=== PATIENT | female | born 1935 | race Caucasian/White ===

== ENCOUNTER 2020-12-12 19:13 | Inpatient (IN) | payer MEDICARE, SELFPAY ==
[2020-12-12 19:14] VITALS: BP 153/88; PULSE 70; RESP 15; TEMP 36.7; O2SAT 98; BMI 23.9
--- NOTE | 2020-12-12 19:33 | CT_ITS ---
STUDY: CT ABDOMEN AND PELVIS WITH CONTRAST REASON FOR EXAM: Female, 85 years old. Sharp mid upper abdominal pain radiating to bilateral lower quadrant for 10 days, prior colectomy RADIATION DOSAGE (If Supplied By Facility): CTDIvol = ( 6.66 ) mGy, DLP = ( 667.42 ) mGycm TECHNIQUE: CT images were obtained from the dome of the diaphragm to the symphysis pubis without oral contrast. Isovue 370 100ml was administered. Sagittal and coronal images were reconstructed. Individualized dose optimization techniques were used for this CT. COMPARISON: None. FINDINGS: There is severe elevation of the left hemidiaphragm with diaphragmatic hernia containing most of the stomach which is not entirely covered by the abdominal images. Additional images are discontinuous. Assessment is difficult. There is unusual configuration of the stomach, possibly partial volvulus within the hernia. However, systemic wall and surrounding fat are normal. There is bilateral basal atelectasis. Coronary arteries are severely diseased. Normal liver. Normal gallbladder and extrahepatic biliary system. Normal spleen. Normal pancreas. Normal bilateral adrenal glands. Normal right kidney. Normal left kidney. There is diffuse colonic diverticulosis. There is acute diverticulitis of the small bowel. There is a single large diverticulum in the distal jejunum with surrounding inflammation. There is no free perforation or extraluminal gas. There is partial right colectomy and appendectomy. Normal abdominal aorta. Normal inferior vena cava. Normal retroperitoneum. Normal urinary bladder. There is small amount of free fluid in the pelvis. Normal abdominal wall. Normal osseous structures. CT/Abdomen/Pelvis WITH Contrast IMPRESSION: 1. Small bowel diverticulitis, unusual appearance. Surgical consultation advised. 2. Extensive colonic diverticulosis. 3. 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 Surgical attention advised. 4. Severe coronary artery disease. Electronically Signed: Zonia Viera MD at 22:07 EDT Tel , Service support ,
--- NOTE | 2020-12-12 19:33 | EDS_ITS ---
HPI HPI - GI History of Present Illness Chief Complaint: Abd Pain Detail of Chief Complaint: Abdominal pain Informant: patient Abdominal Pain/Flank Pain Current Severity: 11/15 Narrative Narrative: Patient presents with abdominal pain that started around 3 PM. Patient states that she had not had a bowel movement in a couple of days and went into the restroom. Patient had a small bowel movement and when she stood up off the toilet she started experiencing severe abdominal pain. She denies nausea or vomiting. She denies blood in her stool or black tarry stool. Patient states that she was seen in an emergency department 1 week ago and diagnosed with a UTI. Patient denies dysuria currently. Patient does have history of prior appendectomy as well as partial colectomy related to diverticulitis. PFSH PFSH Medical History (Updated 12/12/20 @ 22:[address] Bianca Paz, ) Diverticulitis FH: total knee replacement Prolapsed bladder UTI (urinary tract infection) Home Medications aspirin 325 mg PO DAILY@0800 tablet 10/31/15 [Rx Last Taken Unknown] atorvastatin 20 mg PO QHS #30 tablet 10/31/15 [Rx Last Taken Unknown] amlodipine 10 mg PO DAILY 12/12/20 [History Last Taken Unknown] metoprolol succinate 50 mg PO BID 12/12/20 [History Last Taken Unknown] Allergy/AdvReac Type Severity Reaction Status Date / Time No Known Allergies Allergy Verified 12/12/20 19:19 Surgical History (Updated 12/12/20 @ 19:21 by Daxa Young) Hx of colectomy Social History Smoking Status: Never smoker ROS ROS ED Constitutional Constitutional ED: Reports systems reviewed and no addt'l complaints, except as documented; Denies body ache(s), change in weight or chills Eyes Eyes: Denies acute decrease in peripheral vision, change in vision, double vision or loss of vision ENT ENT ED: Reports none; Denies ear pain, lip swelling, loss taste/smell, neck pain, otalgia or sore throat Cardiovascular Cardiovascular: Reports none; Denies abdominal pain, chest pain with activity, leg edema, lightheadedness, palpitations, rapid heart rate or syncope Respiratory/Chest Respiratory/Chest: Reports none; Denies change in mental status, dry cough, dyspnea, hemoptysis, shortness of breath at rest or shortness of breath with exertion Gastrointestinal Gastrointestinal: Reports none and abdominal pain; Denies change in stool character, diarrhea, hematemesis, hematochezia, melena, rectal bleeding or vomiting Genitourinary Genitourinary ED: Reports none; Denies abdominal discomfort, anuria, dysuria, genital pain or polyuria Musculoskeletal Musculoskeletal: Reports none; Denies arthralgias, back pain, difficulty walking, extremity pain, muscle weakness or myalgias Integumentary Reports none; Denies abscess or rash Neurologic Neurologic: Reports none; Denies abnormal gait, confusion, focal weakness, frequent falls, headache(s), loss of vision, numbness, paresthesias, radicular pain, vertigo or weakness Psychiatric Psychiatric: Reports systems reviewed and no addt'l complaints, except as documented and none; Denies behavioral changes, confusion, difficulty concentrating, hallucinations, suicidal ideation, tactile hallucinations or visual hallucinations Endocrine Endocrinology: Denies none, cold intolerance, excessive sweating, fatigue or heat intolerance Hematologic/Lymphatic Hematologic/Lymphatic: Reports none; Denies anemia, easy bleeding or easy bruising Allergic/Immunologic Allergic/Immunologic ED: Denies as per HPI, none, lip swelling, mouth swelling, throat swelling, tongue swelling or hives EXAM Physical Exam Const Vital Signs: 12/12/20 19:14 12/12/20 22:22 Temperature 98.0 F Temperature Source Oral Pulse Rate 70 71 Respiratory Rate 15 15 Blood Pressure 153/88 H 141/74 H Blood Pressure Mean 109 96 Pulse Ox 98 94 Oxygen Delivery Method Room Air Room Air Positive well nourished and well developed General Appearance ED: well developed and NAD HEENT Reports TM's clear and moist mucous membranes normocephalic and atraumatic; Negative for trauma or tenderness Tympanic Membrane ED: Yes TM's clear Eyes PERRL and EOMs intact bilaterally General Eye ED: Negative for pale conjunctiva or scleral icterus Neck no lymphadenopathy, supple and no JVD General: Negative for tenderness Chest Wall inspection of chest normal and palpation of chest normal Chest: Negative for tenderness Resp normal respiratory effort and clear to auscultation bilaterally Effort and Inspection: Negative for respiratory distress or pain with movement Auscultation: Negative for rhonchi, wheezes or diminished lung sounds Cardio regular rate, regular rhythm, S1 normal heart sound, S2 normal heart sound and no murmurs Peripheral Pulses: pulses 2+ throughout GI normal to inspection, nondistended, normoactive bowel sounds, soft to palpation, non-distended and no masses GI Narrative: Patient has diffuse tenderness on exam with guarding. There is no rebound, rigidity, or peritoneal signs. Palpation: tender Back/Spine no CVA tenderness and no thoracic nor lumbar tenderness Extremity normal to inspection General Extremety ED: Negative for edema General Extremity: Negative for edema Neuro oriented x3, CN's II-XII intact bilaterally, no sensory deficits noted and gait normal Sensorium / Orientation: awake, alert, oriented to person, oriented to place and oriented to time Motor Exam: strength 5/5 throughout and strength abnormal Psych mental status grossly normal Skin no rashes or lesions noted and no wounds MDM MDM MDM Narrative Medical decision making narrative: IV line established on arrival. Patient was medicated morphine and Zofran. Lab work-up was unremarkable. CT scan with IV and p.o. contrast of the abdomen pelvis was obtained which was read by radiology as small bowel diverticulitis unusual appearance and surgical consultation advised. Patient also had a large left diaphragmatic hernia with atypical configuration of the stomach in the left chest possibly partial volvulus. Case discussed with general surgeon on-call Dr. Rosalind Duval who present to the ER to evaluate patient. I did ask that we obtain a copy of the CT scan from [facility] where patient had a CT last week for comparison. Care of patient turned over to evening physician awaiting evaluation by general surgeon. Lab Data Attestation: I reviewed the patient's lab results. Labs: Laboratory Results - last 24 hr 12/12/20 12/12/20 12/12/20 19:29 19:29 19:29 WBC 9.3 RBC 5.59 H Hgb 16.0 H Hct 50.2 H MCV 89.8 MCH 28.6 MCHC 31.9 L RDW Std Deviation 44.4 H RDW Coeff of Sarah 13.4 Plt Count 216 MPV 10.1 Immature Gran % (Auto) 0.200 Neut % (Auto) 80.1 H Lymph % (Auto) 15.0 L [place] % (Auto) 4.0 Eos % (Auto) 0.4 Baso % (Auto) 0.3 Absolute Neuts (auto) 7.5 Absolute Lymphs (auto) 1.40 Nucleated RBC % 0 Sodium 140 Potassium 4.0 Chloride 108 H Carbon Dioxide 28.0 Anion Gap 4 L BUN 15 Creatinine 0.93 Estim Creat Clear Calc 34.34 Est GFR (MDRD) Af Amer 73 Est GFR (MDRD) Non-Af 60 BUN/Creatinine Ratio 16.1 Glucose 127 H Lactic Acid 1.0 Calcium 9.1 Total Bilirubin 0.50 AST 19 ALT 25 Alkaline Phosphatase 147 H Total Protein 7.7 Albumin 3.3 Globulin 4.4 H Albumin/Globulin Ratio 0.8 L Urine Color Urine Clarity Urine pH Ur Specific [place] Urine Protein Urine Glucose (UA) Urine Ketones Urine Occult Blood Urine Nitrite Urine Bilirubin Urine Urobilinogen Ur Leukocyte Esterase Urine RBC Urine WBC Ur Squamous Epith Cells Urine Bacteria Urine Mucus 12/12/20 21:00 WBC RBC Hgb Hct MCV MCH MCHC RDW Std Deviation RDW Coeff of Sarah Plt Count MPV Immature Gran % (Auto) Neut % (Auto) Lymph % (Auto) [place] % (Auto) Eos % (Auto) Baso % (Auto) Absolute Neuts (auto) Absolute Lymphs (auto) Nucleated RBC % Sodium Potassium Chloride Carbon Dioxide Anion Gap BUN Creatinine Estim Creat Clear Calc Est GFR (MDRD) Af Amer Est GFR (MDRD) Non-Af BUN/Creatinine Ratio Glucose Lactic Acid Calcium Total Bilirubin AST ALT Alkaline Phosphatase Total Protein Albumin Globulin Albumin/Globulin Ratio Urine Color Yellow Urine Clarity Clear Urine pH 6.0 Ur Specific [place] 1.020 Urine Protein Negative Urine Glucose (UA) Normal Urine Ketones 5 H Urine Occult Blood Negative Urine Nitrite Negative Urine Bilirubin Negative Urine Urobilinogen 1 H Ur Leukocyte Esterase 25 H Urine RBC 0 SEEN Urine WBC 5-10 SEEN Ur Squamous Epith Cells 0-5 SEEN Urine Bacteria 2+ Urine Mucus 1+ Radiography Diagnostic Testing: Clinical Impression(s) from Imaging Studies Abdomen/Pelvis CT 12/12/20 19:33 IMPRESSION: 1. Small bowel diverticulitis, unusual appearance. Surgical consultation advised. 2. Extensive colonic diverticulosis. 3. 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 Surgical attention advised. 4. Severe coronary artery disease. Electronically Signed: Zonia Viera MD at 22:07 EDT Tel , Service support , Discharge Plan Triage Chief Complaint: Abd Pain ED Provider: Ungur,Remus Dx/Rx/DC Orders Clinical Impression: Abdominal pain, Diverticulitis Prescriptions: No Action atorvastatin 20 MG tablet 20 mg PO QHS Qty: 30 RF: 0 aspirin 325 MG tablet 325 mg PO DAILY@0800 RF: 0 metoprolol succinate 50 MG tablet extended release 24 hr 50 mg PO BID RF: 0 amlodipine 10 mg tablet 10 mg PO DAILY RF: 0 Primary Care Provider: Ness Tello Referrals: Ness Tello PA [Primary Care Provider] -
[2020-12-12 19:42] LABS: Absolute Neutrophil Count 7.5 X10^3/uL (2.0-7.7); Basophil# 0.03 X10^3/uL; Basophil% 0.3 % (0-1); Eosinophil# 0.04 X10^3/uL; Eosinophils% 0.4 % (0-5); Hematocrit 50.2 % (37-47); Mean Corp Hgb Conc 31.9 g/dL (32-36); Mean Corpuscular Hgb 28.6 pg (27.0-32.0); Mean Corpuscular Volume 89.8 fL (81-99); Mean Platelet Vol. 10.1 fl (6.2-12.0); Monocyte# 0.37 X10^3/uL; NRBC Flagged by Analyzer 0 % (0-5); Neutrophil # 7.46 X10^3/uL (2.7-7.7); Neutrophil % 80.1 % (47-70); Platelet Count 216 K/mm3 (150-450); RBC Distribution Width CV 13.4 % (11.6-14.6); RBC Distribution Width SD 44.4 fl (35.1-43.9); Red Blood Count 5.59 M/mm3 (4.2-5.4); White Blood Count 9.3 K/mm3 (4.4-11.0)
[2020-12-12] MEDS: Ondansetron 4 MG/2 ML Vial IV ×2 (19:47→23:09)
[2020-12-12] MEDS: Morphine 4 MG/ML Syringe IV ×2 (19:48→23:11)
[2020-12-12] MEDS: 0.9% Normal Saline 1,000 ML 125 ML IV (19:51)
[2020-12-12 19:57] LABS: ALB/GLOB Ratio 0.8 RATIO (0.9-2.4); AST(SGOT) 19 U/L (15-37); Alanine Aminotransfer ALT/SGPT 25 U/L (13-56); Albumin, Serum 3.3 g/dL (3.2-5.0); Alkaline Phosphatase 147 U/L (45-117); Anion Gap 4 (5-15); BUN 15 mg/dL (7-18); BUN/Creat Ratio 16.1 RATIO (10-20); Calcium,Total 9.1 mg/dL (8.5-10.1); Chloride 108 mmol/L (98-107); Creatinine, Serum 0.93 mg/dL (0.55-1.02); EST Glomerular Filtration Rate 60 mL/min (>60); Est Glom Filt Rate - Afr Amer 73 mL/min (>60); Estimated Creatinine Clearance 34.34 ml/min; Globulin 4.4 g/dL (2.2-4.2); Glucose 127 mg/dL (74-106); Protein, Total 7.7 g/dL (6.4-8.2); Sodium Level 140 mmol/L (136-145)
[2020-12-12 21:08] LABS: Red Blood Cells-Urine 0 SEEN /hpf (0-5)
[2020-12-12 21:15] LABS: Color, Urine Yellow (Yellow); Glucose, Dipstick Normal (Normal); Ketone-Dipstick 5 mg/dl (Negative); Leukocyte Esterase-Dipstick 25 /ul (Negative); Nitrite-Dipstick Negative (Negative); Occult Blood-Urine Negative /ul (Negative); Protein-Dipstick Negative (Negative); Urine Bilirubin Dipstick Negative (Negative); Urine Clarity Clear (Clear); Urine Urobilinogen 1 mg/dl (Normal)
[2020-12-12 21:38] LABS: Bacteria 2+ /hpf (None Seen); Mucous, Urine 1+ /hpf (<or=2+); Squamous Epithelial Cells - UA 0-5 SEEN /hpf (5-10); White Blood Cells 5-10 SEEN /hpf (0-5)
[2020-12-12 22:22] VITALS: BP 141/74; PULSE 71; RESP 15; O2SAT 94
[2020-12-12] MEDS: Ciprofloxacin 400 MG/200 ML BAG 200 MG IV (23:25)
--- NOTE | 2020-12-12 23:29 | PCM.HP.STD ---
HPI - General General Date of Admission: 12/13/20 HPI Narrative I was consulted by the ED physician for this patient and I came to the ED to evaluate her. CHRIS JUGN, is a 85 F who presents with sudden onset of abdominal pain - generalized, beginning at 3:00 this afternoon. She denies such abdominal pain in the past. She has had nausea and anorexia, she denies emesis, though recently dry heaves. She had a bowel movement today. She has severe abdominal pain, despite receiving IV morphine here in the ED. She states that she presented with 10/10 pain but with IV morphine it became 8/10. She presents with stable vital signs and a normal WBC (though with left shift of differential) and normal lactic acid, but CT scan reveals that that she has a large left diaphragmatic hernia with almost her entire stomach in the thoracic area. There is question of volvulus as read by the radiologist. The patient seemingly has pain out of proportion to diverticulitis pain by examination. [facility] Medical History (Updated 12/13/20 @ 08:[address] Celestino Vega MD) Diverticulitis FH: total knee replacement Prolapsed bladder UTI (urinary tract infection) Home Medications amlodipine 10 mg PO DAILY 12/12/20 [History Last Taken Unknown] metoprolol succinate 50 mg PO BID 12/12/20 [History Last Taken Unknown] aspirin [Baby Aspirin] 81 mg PO DAILY 12/13/20 [History Last Taken Unknown] Allergy/AdvReac Type Severity Reaction Status Date / Time No Known Allergies Allergy Verified 12/12/20 19:19 Surgical History (Updated 12/12/20 @ 23:[address] Rosalind Duval MD) H/O total knee replacement Hx of colectomy Social History Smoking Status: Never smoker ROS Constitutional Constitutional: Reports anorexia; Denies fever(s) Cardiovascular Cardiovascular: Denies chest pain Respiratory/Chest Respiratory/Chest: Denies cough or dyspnea Gastrointestinal Gastrointestinal: Reports systems reviewed and no addt'l complaints, except as documented Genitourinary Genitourinary: Reports other Details: recent treatment for UTI Musculoskeletal Musculoskeletal: Reports back pain Integumentary Integumentary: Reports none; Denies wounds Neurologic Neurologic: Denies confusion or convulsions Vital Signs Vital Signs Vital Signs: 12/12/20 19:14 12/12/20 22:22 Temperature 98.0 F Temperature Source Oral Pulse Rate 70 71 Respiratory Rate 15 15 Blood Pressure 153/88 H 141/74 H Blood Pressure Mean 109 96 Pulse Ox 98 94 Oxygen Delivery Method Room Air Room Air Weight Weight: 59.3 kg Body Mass Index (BMI) 23.9 Physical Exam Narrative complains of severe abdominal pain, can't lie still Const oriented x3 Resp normal respiratory effort Cardio regular rate GI GI Narrative: guarding throughout, no bowel sounds, patient pushes my hand away when I am examining her Extremity no clubbing, cyanosis or edema Psych Psych Narrative: very anxious Results Lab / Micro Data Result Diagrams: 12/13/20 09:55 12/13/20 09:55 Labs: Laboratory Results - last 24 hr 12/12/20 19:29: WBC 9.3, RBC 5.59 H, Hgb 16.0 H, Hct 50.2 H, MCV 89.8, MCH 28.6, MCHC 31.9 L, RDW Std Deviation 44.4 H, RDW Coeff of Sarah 13.4, Plt Count 216, MPV 10.1, Immature Gran % (Auto) 0.200, Neut % (Auto) 80.1 H, Lymph % (Auto) 15.0 L, [place] % (Auto) 4.0, Eos % (Auto) 0.4, Baso % (Auto) 0.3, Absolute Neuts (auto) 7.5, Absolute Lymphs (auto) 1.40, Nucleated RBC % 0 12/12/20 19:29: Sodium 140, Potassium 4.0, Chloride 108 H, Carbon Dioxide 28.0, Anion Gap 4 L, BUN 15, Creatinine 0.93, Estim Creat Clear Calc 34.34, Est GFR (MDRD) Af Amer 73, Est GFR (MDRD) Non-Af 60, BUN/Creatinine Ratio 16.1, Glucose 127 H, Calcium 9.1, Total Bilirubin 0.50, AST 19, ALT 25, Alkaline Phosphatase 147 H, Total Protein 7.7, Albumin 3.3, Globulin 4.4 H, Albumin/Globulin Ratio 0.8 L 12/12/20 19:29: Lactic Acid 1.0 12/12/20 21:00: Urine Color Yellow, Urine Clarity Clear, Urine pH 6.0, Ur Specific [place] 1.020, Urine Protein Negative, Urine Glucose (UA) Normal, Urine Ketones 5 H, Urine Occult Blood Negative, Urine Nitrite Negative, Urine Bilirubin Negative, Urine Urobilinogen 1 H, Ur Leukocyte Esterase 25 H, Urine RBC 0 SEEN, Urine WBC 5-10 SEEN, Ur Squamous Epith Cells 0-5 SEEN, Urine Bacteria 2+, Urine Mucus 1+ Radiology Impression Abdomen/Pelvis CT 12/12/20 19:33 IMPRESSION: 1. Small bowel diverticulitis, unusual appearance. Surgical consultation advised. 2. Extensive colonic diverticulosis. 3. 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 Surgical attention advised. 4. Severe coronary artery disease. Electronically Signed: Zonia Viera MD at 22:07 EDT Tel , Service support , Assessment & Plan Assessment/Plan (1) Abdominal pain: QUALIFIERS: Abdominal location: generalized Qualified Code(s): R10.84 - Generalized abdominal pain PLAN: Patient with severe abdominal pain, this may be a complication of her large diaphragmatic hernia with intrathoracic stomach (albeit this is a chronic condition), I am not certain that the small intestinal diverticulitis would be causing this patient's severe pain on presentation/physical examination. I am not able to perform repair of diaphragmatic hernia with intrathoracic stomach in this MTF, I would therefore have patient transferred to a larger MTF. I have explained this to patient and her daughter who is present with her. I have contacted [facility] and Dr. Min is the accepting physician
[2020-12-12 23:30] VITALS: BP 137/75; PULSE 72; RESP 15; O2SAT 91
[2020-12-12 23:57] VITALS: BP 129/62; PULSE 69; RESP 15; O2SAT 95
[2020-12-13] VITALS (14 sets, daily range): BP systolic 98–145; BP diastolic 56–70; PULSE 62–79; RESP 15–18; TEMP 36.4–37.1; O2SAT 91–97; BMI 23.6
[2020-12-13] MEDS: metroNIDAZOLE 500 MG/100 ML BAG 100 MG IV ×3 (00:33→21:39)
[2020-12-13] MEDS: Morphine 4 MG/ML Syringe IV ×2 (00:34→05:11)
[2020-12-13] MEDS: Ondansetron 4 MG/2 ML Vial IV ×2 (00:36→12:34)
--- NOTE | 2020-12-13 00:36 | ED.RN ---
PATIENT ACCEPTED AT [facility] THEY DONT HAVE A TIME FOR WHEN THE PATIENT WILL GET A BED
[2020-12-13] MEDS: 0.9% Normal Saline 1,000 ML 125 ML IV (03:44)
[2020-12-13] MEDS: Metoclopramide 10 MG/2 ML Vial 5 MG IV (05:54)
--- NOTE | 2020-12-13 07:48 | HP.PCM.HOS_ITS ---
HPI - General HPI Narrative CHRIS JUNG, is a 85 F with multiple comorbidities including coronary artery disease status post stents, lacunar infarcts in the past in 2016, hypertension was brought to ER by EMS for abdominal pain. Patient complain of severe abdominal pain for last 2 days along with burping, nausea but no vomiting. She was given IV fluid, Zofran by EMS. She is passing incomplete flatus but no stool. Abdominal pain is 10/10 diffuse from the lower half of chest to pelvis but predominantly left upper quadrant. Patient was seen in [facility] on 11/30 for right-sided abdominal pain and at that time CT abdomen showed intrathoracic stomach without obstruction, no bowel obstruction or dilatation or diverticulosis throughout the colon most significant in sigmoid colon. No focal acute inflammation. Appendix absence. Evidence of prior right hemicolectomy and anastomosis. In ER CT abdomen was done which showed large left diaphragmatic hernia with possible partial volvulus of the stomach. Acute small bowel diverticulitis with single large diverticulum in distal jejunum with surrounding inflammation. No free perforation or extraluminal gas. Diffuse colonic diverticulosis. and patient was evaluated by surgeon and recommended transfer to [facility] and patient is accepted there. There is still no bed average in [facility] therefore she is admitted in the interim. Patient does not have leukocytosis but neutrophil predominant differential. 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 [facility] Medical History (Updated 12/13/20 @ 08:[address] Celestino Vega MD) Diverticulitis FH: total knee replacement Prolapsed bladder UTI (urinary tract infection) Home Medications aspirin 325 mg PO DAILY@0800 tablet 10/31/15 [Rx Last Taken Unknown] atorvastatin 20 mg PO QHS #30 tablet 10/31/15 [Rx Last Taken Unknown] amlodipine 10 mg PO DAILY 12/12/20 [History Last Taken Unknown] metoprolol succinate 50 mg PO BID 12/12/20 [History Last Taken Unknown] Allergy/AdvReac Type Severity Reaction Status Date / Time No Known Allergies Allergy Verified 12/12/20 19:19 Surgical History (Updated 12/12/20 @ 23:[address] Rosalind Duval MD) H/O total knee replacement Hx of colectomy Social History Smoking Status: Never smoker ROS ROS Narrative Constitutional: Reports fatigue and weakness HEENT: Reports systems reviewed and no addt'l complaints, except as documented Respiratory/Chest: As described in HPI. mild shortness of breath from pain Gastrointestinal: As described in HPI. Genitourinary: History of genital prolapse.Denies burning urination or new urinary tract symptoms Musculoskeletal: Reports joint pain and limited range of motion Neurologic: Denies seizure-like activity. Mild dementia skin: No ulcer. No rash Endocrinology: Reports systems reviewed and no addt'l complaints, except as documented Hematologic/Lymphatic: Reports systems reviewed and no addt'l complaints, except as documented Rest 12 ROS are negative except as mentioned in HPI Review of Systems ROS Unobtainable: due to mental condition Vital Signs Vital Signs Vital Signs: 12/12/20 19:14 12/12/20 22:22 12/12/20 23:30 Temperature 98.0 F Temperature Source Oral Pulse Rate 70 71 72 Respiratory Rate 15 15 15 Blood Pressure 153/88 H 141/74 H 137/75 H Blood Pressure Mean 109 96 95 Pulse Ox 98 94 91 Oxygen Delivery Method Room Air Room Air Room Air Oxygen Flow Rate (L/min) 12/12/20 23:57 12/13/20 00:52 12/13/20 02:50 Temperature Temperature Source Pulse Rate 69 62 63 Respiratory Rate 15 15 15 Blood Pressure 129/62 H 114/67 100/56 L Blood Pressure Mean 84 82 70 Pulse Ox 95 92 94 Oxygen Delivery Method Nasal Cannula Nasal Cannula Nasal Cannula Oxygen Flow Rate (L/min) 2 2 2 12/13/20 03:52 12/13/20 05:35 12/13/20 05:56 Temperature Temperature Source Pulse Rate 63 65 63 Respiratory Rate 15 15 15 Blood Pressure 116/66 98/61 109/61 Blood Pressure Mean 82 73 77 Pulse Ox 91 94 97 Oxygen Delivery Method Nasal Cannula Nasal Cannula Nasal Cannula Oxygen Flow Rate (L/min) 2 2 2 Weight Weight: 130 lb 11.746 oz Body Mass Index (BMI) 23.9 Physical Exam Narrative General: Alert, Oriented x3, Cooperative HEENT: Atraumatic, PERRLA, EOMI, Normocephalic Oral: No Gingival or Mucosal Lesions/ Ulcerations Neck: Supple, No JVD, Negative Carotid Bruits Lungs: Air entry diminished in bilateral lung bases. No crepitation/rhonchi Cardiovascular: S1-S2 regular, no murmur gallop rub. Abdomen: Diffuse tenderness from the lower half of chest to pelvis. Bowel Sounds hyperactive. Voluntary guarding present. No rigidity. No distention. : Chronic genitourinary prolapse. No renal angle tenderness. No suprapubic tenderness. Extremities: No edema, Capillary Refill Less than 3 Seconds Skin: No rashes, No breakdown Musculoskeletal: No Tenderness to Palpation of Joints or Extremities Neurological: Cranial nerves II-XII grossly intact, DTR 2+/4 and Symmetrical, Neuro grossly intact Psych/Mental Status: Flat affect. Results Lab / Micro Data Result Diagrams: 12/12/20 19:29 12/12/20 19:29 Labs: Laboratory Results - last 24 hr 12/12/20 19:29: WBC 9.3, RBC 5.59 H, Hgb 16.0 H, Hct 50.2 H, MCV 89.8, MCH 28.6, MCHC 31.9 L, RDW Std Deviation 44.4 H, RDW Coeff of Sarah 13.4, Plt Count 216, MPV 10.1, Immature Gran % (Auto) 0.200, Neut % (Auto) 80.1 H, Lymph % (Auto) 15.0 L, [place] % (Auto) 4.0, Eos % (Auto) 0.4, Baso % (Auto) 0.3, Absolute Neuts (auto) 7.5, Absolute Lymphs (auto) 1.40, Nucleated RBC % 0 12/12/20 19:29: Sodium 140, Potassium 4.0, Chloride 108 H, Carbon Dioxide 28.0, Anion Gap 4 L, BUN 15, Creatinine 0.93, Estim Creat Clear Calc 34.34, Est GFR (MDRD) Af Amer 73, Est GFR (MDRD) Non-Af 60, BUN/Creatinine Ratio 16.1, Glucose 127 H, Calcium 9.1, Total Bilirubin 0.50, AST 19, ALT 25, Alkaline Phosphatase 147 H, Total Protein 7.7, Albumin 3.3, Globulin 4.4 H, Albumin/Globulin Ratio 0.8 L 12/12/20 19:29: Lactic Acid 1.0 12/12/20 21:00: Urine Color Yellow, Urine Clarity Clear, Urine pH 6.0, Ur Specific [place] 1.020, Urine Protein Negative, Urine Glucose (UA) Normal, Urine Ketones 5 H, Urine Occult Blood Negative, Urine Nitrite Negative, Urine Bilirubin Negative, Urine Urobilinogen 1 H, Ur Leukocyte Esterase 25 H, Urine RBC 0 SEEN, Urine WBC 5-10 SEEN, Ur Squamous Epith Cells 0-5 SEEN, Urine Bacteria 2+, Urine Mucus 1+ Micro: Microbiology 12/12/20 23:57 Nasal Secretion SARS-CoV-2 Antigen (Rapid) - Final Radiology Impression Abdomen/Pelvis CT 12/12/20 19:33 IMPRESSION: 1. Small bowel diverticulitis, unusual appearance. Surgical consultation advised. 2. Extensive colonic diverticulosis. 3. 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 Surgical attention advised. 4. Severe coronary artery disease. Electronically Signed: Zonia Viera MD at 22:07 EDT Tel , Service support , Assessment & Plan Assessment/Plan (1) Diverticulitis: (2) Diaphragmatic hernia: QUALIFIERS: Obstruction and gangrene presence: with obstruction but without gangrene Qualified Code(s): K44.0 - Diaphragmatic hernia with obstruction, without gangrene (3) Stomach volvulus: PLAN: CHRIS JUNG, is a 85 F with multiple comorbidities is being admitted for abdominal pain and CT abdomen was done which showed large left diaphragmatic hernia with possible partial volvulus of the stomach. Acute small bowel diverticulitis with single large diverticulum in distal jejunum with surrounding inflammation. No free perforation or extraluminal gas. Diffuse colonic diverticulosis. 1. 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 IV fluid Ringer lactate. Patient seen by surgeon Dr. Duval. She is accepted in [facility] and will be transferred once bed is available. On IV Cipro and Flagyl. Stool for occult blood, WBC and enteric bacterial pathogen although she is not having any bowel movement currently. Lactic acid normal. Keep n.p.o. lab work for today ordered. 2. Coronary artery disease status post stents and hypertension: Currently patient not having any chest pain or shortness of breath. Twelve-lead EKG ordered. Hold her cardiac medications as she is n.p.o. status. BP normal 3. 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 VT prophylaxis: Lovenox 40 mg subcu daily Living will/advanced directive/end of life care: Patient does not have living will or advanced directive. After discussion of benefits/risks procedures involved with full code, DNR CC arrest and DNR CC, the patient opted for full code Patient does want artificial life support including intubation, tube feed, ventilator and/chest compression, central venous catheter, vasopressor and DC shock if needed Total time spent in [id number] encounter in discussion of advanced directive 16 minutes. Clinical Impression(s) from Imaging Studies Abdomen/Pelvis CT 12/12/20 19:33 IMPRESSION: 1. Small bowel diverticulitis, unusual appearance. Surgical consultation advised. 2. Extensive colonic diverticulosis. 3. 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 Surgical attention advised. 4. Severe coronary artery disease. Charges/Coding Visit Charges Inpatient E&M: 95849 Init Hosp L3 Procedures Hospitalists Procedures: 13992 Advncd Care Plan 30 Min
--- NOTE | 2020-12-13 08:11 | ED.RN ---
WITH PT PERMISSION THIS RN SPOKE TO FAMILY MEMBER SINCERE AND INFORMED HER OF PT ADMISSION.
--- NOTE | 2020-12-13 08:18 | EKG12_ITS ---
Test Reason : Blood Pressure : / mmHG Vent. Rate : 068 BPM Atrial Rate : 068 BPM P-R Int : 192 ms QRS Dur : 080 ms QT Int : 444 ms P-R-T Axes : 048 029 036 degrees QTc Int : 472 ms Normal sinus rhythm Normal ECG Confirmed by BHAVANA SILVERMAN, ALON ([id number]), news editor MAGDY BRADFORD ([id number]) on 12/16/2020 9:32:09 AM Referred By: LISETH Confirmed By:ALON BATEMAN MD
--- NOTE | 2020-12-13 08:46 | PCS.PANDOC ---
PANDEMIC DOCUMENTATION INITIATED: Date: 09/21/2020 Time: 190
[2020-12-13] MEDS: Lactated Ringers 1,000 ML 100 ML IV (09:03)
[2020-12-13 10:05] LABS: Absolute Neutrophil Count 4.6 X10^3/uL (2.0-7.7); Basophil# 0.01 X10^3/uL; Basophil% 0.2 % (0-1); Hematocrit 40.7 % (37-47); Hemoglobin 12.8 g/dL (12.0-15.0); Lymphocyte % 21.4 % (19-41); Mean Corp Hgb Conc 31.4 g/dL (32-36); Mean Corpuscular Hgb 28.6 pg (27.0-32.0); Mean Corpuscular Volume 91.1 fL (81-99); Mean Platelet Vol. 10.3 fl (6.2-12.0); Monocyte# 0.46 X10^3/uL; NRBC Flagged by Analyzer 0 % (0-5); Neutrophil # 4.64 X10^3/uL (2.7-7.7); Neutrophil % 71.1 % (47-70); Platelet Count 194 K/mm3 (150-450); RBC Distribution Width CV 13.7 % (11.6-14.6); RBC Distribution Width SD 46.1 fl (35.1-43.9); Red Blood Count 4.47 M/mm3 (4.2-5.4); White Blood Count 6.5 K/mm3 (4.4-11.0)
[2020-12-13] MEDS: Ciprofloxacin 200 MG/100 ML BAG 100 MG IV ×2 (10:15→20:38)
[2020-12-13 10:29] LABS: ALB/GLOB Ratio 0.7 RATIO (0.9-2.4); AST(SGOT) 13 U/L (15-37); Alanine Aminotransfer ALT/SGPT 21 U/L (13-56); Albumin, Serum 2.6 g/dL (3.2-5.0); Alkaline Phosphatase 106 U/L (45-117); Anion Gap 3 (5-15); BUN 16 mg/dL (7-18); BUN/Creat Ratio 19.6 RATIO (10-20); Calcium,Total 8.4 mg/dL (8.5-10.1); Chloride 110 mmol/L (98-107); Creatinine, Serum 0.82 mg/dL (0.55-1.02); EST Glomerular Filtration Rate 71 mL/min (>60); Est Glom Filt Rate - Afr Amer 85 mL/min (>60); Estimated Creatinine Clearance 38.95 ml/min; Globulin 3.8 g/dL (2.2-4.2); Glucose 128 mg/dL (74-106); Phosphorus 3.4 mg/dL (2.5-4.9); Potassium 4.2 mmol/L (3.5-5.1); Protein, Total 6.4 g/dL (6.4-8.2); Sodium Level 140 mmol/L (136-145)
--- NOTE | 2020-12-13 11:09 | NURSING ---
aware no bed at this time per [facility] transfer center, no estimation on time frame for bed
[2020-12-13] MEDS: HYDROmorphone 0.5 MG/0.5 ML SYRINGE IV ×2 (12:33→19:48)
[2020-12-13] MEDS: 0.9% Saline Lock 10 ML Syringe IV ×2 (12:34→19:48)
[2020-12-13] MEDS: Dext 5%-0.45% NS 1,000 ML 100 ML IV (14:55)
--- NOTE | 2020-12-13 17:06 | NURSING ---
phoned [facility] transfer line to inquire about [facility] transfer bed, male states he will check with bed managment as well: no bed assignment available.
[2020-12-13] MEDS: proCHLORPERazine 10 MG/2 ML Vial 5 MG IV (19:53)
[2020-12-14] VITALS (14 sets, daily range): BP systolic 145–179; BP diastolic 65–85; PULSE 70–91; RESP 15–18; TEMP 36.7–36.9; O2SAT 93–95
[2020-12-14] MEDS: Dext 5%-0.45% NS 1,000 ML 100 ML IV ×2 (02:03→13:57)
[2020-12-14] MEDS: HYDROmorphone 0.5 MG/0.5 ML SYRINGE IV ×5 (06:05→23:02)
[2020-12-14] MEDS: 0.9% Saline Lock 10 ML Syringe IV ×2 (06:05→23:02)
[2020-12-14] MEDS: metroNIDAZOLE 500 MG/100 ML BAG 100 MG IV ×3 (06:07→22:55)
[2020-12-14 06:35] LABS: Absolute Lymphocyte Count 0.97 X10^3/uL (0.83-4.51); Absolute Neutrophil Count 4.9 X10^3/uL (2.0-7.7); Basophil# 0.02 X10^3/uL; Basophil% 0.3 % (0-1); Eosinophil# 0.01 X10^3/uL; Eosinophils% 0.2 % (0-5); Hematocrit 38.6 % (37-47); Hemoglobin 12.5 g/dL (12.0-15.0); Lymphocyte # 0.97 X10^3/ul (0.83-4.51); Lymphocyte % 14.9 % (19-41); Mean Corp Hgb Conc 32.4 g/dL (32-36); Mean Corpuscular Hgb 29.3 pg (27.0-32.0); Mean Corpuscular Volume 90.4 fL (81-99); Mean Platelet Vol. 11.6 fl (6.2-12.0); Monocyte# 0.58 X10^3/uL; Monocyte% 8.9 % (0-10); NRBC Flagged by Analyzer 0 % (0-5); Neutrophil # 4.93 X10^3/uL (2.7-7.7); Neutrophil % 75.4 % (47-70); Platelet Count 150 K/mm3 (150-450); RBC Distribution Width SD 46.4 fl (35.1-43.9); Red Blood Count 4.27 M/mm3 (4.2-5.4); White Blood Count 6.5 K/mm3 (4.4-11.0)
--- NOTE | 2020-12-14 06:48 | NURSING ---
0615 went into pt's room to give pain meds per request. Pt is crying, states she is worried about her son, Hernandez, who she states lives with her and has lyme disease. She says she has to get home to be with him and doesn't want to stay here. Explained to pt that her medical condition requires attention to which she states I don't care, I want to be with my Javy. This RN asked if we could call her son to check in on him. Pt states that there is no one close to her son that would be willing to stay with him. Says he gave up driving 3-4 months ago. Pt given pain medication and encouraged to deep breathe. Pt more calm at this point. Told pt this RN would check back with her shortly. Went back 0650 to check on pt and again suggest trying to call son, pt was asleep at this time.
[2020-12-14 06:53] LABS: Anion Gap 3 (5-15); BUN 10 mg/dL (7-18); BUN/Creat Ratio 16.3 RATIO (10-20); Calcium,Total 8.2 mg/dL (8.5-10.1); Chloride 108 mmol/L (98-107); Creatinine, Serum 0.62 mg/dL (0.55-1.02); EST Glomerular Filtration Rate 98 mL/min (>60); Est Glom Filt Rate - Afr Amer 118 mL/min (>60); Estimated Creatinine Clearance 31.94 ml/min; Glucose 166 mg/dL (74-106); Potassium 3.7 mmol/L (3.5-5.1); Sodium Level 135 mmol/L (136-145)
--- NOTE | 2020-12-14 08:19 | PN.SURG_ITS ---
Subjective Subjective Patient is still awaiting transfer to main [facility]. She reports 12 out of 10 pain, given that she is receiving IV dilaudid She is also receiving antibiotics, which should improve small bowel diverticulitis, so I am still concerned about the intrathoracic stomach still with nausea and dry heaves - bag by her side Objective Data Objective Data Vital Signs: Vital Signs Temp Pulse Resp BP Pulse Ox 98.1 F 78 16 171/70 H 93 12/14/20 08:04 12/14/20 08:04 12/14/20 08:04 12/14/20 08:04 12/14/20 08:04 Oxygen Flow Rate (L/min) 2 Oxygen Delivery Method Room Air Weight: 60.6 kg Body Mass Index (BMI) 23.6 Intake & Output: Intake and Output for Last 24 Hours 12/13/20 12/13/20 12/14/20 00:59 23:59 23:59 Intake Total 340 / 340 Output Total 500 / 500 Balance -160 / -160 Lab / Micro Data Result Diagrams: 12/14/20 05:34 12/14/20 05:34 Labs: Laboratory Results - last 24 hr 12/13/20 09:55: WBC 6.5, RBC 4.47, Hgb 12.8, Hct 40.7, MCV 91.1, MCH 28.6, MCHC 31.4 L, RDW Std Deviation 46.1 H, RDW Coeff of Sarah 13.7, Plt Count 194, MPV 10.3, Immature Gran % (Auto) 0.300, Neut % (Auto) 71.1 H, Lymph % (Auto) 21.4, [place] % (Auto) 7.0, Eos % (Auto) 0.0, Baso % (Auto) 0.2, Absolute Neuts (auto) 4.6, Absolute Lymphs (auto) 1.40, Nucleated RBC % 0 12/13/20 09:55: Sodium 140, Potassium 4.2, Chloride 110 H, Carbon Dioxide 27.0, Anion Gap 3 L, BUN 16, Creatinine 0.82, Estim Creat Clear Calc 38.95, Est GFR (MDRD) Af Amer 85, Est GFR (MDRD) Non-Af 71, BUN/Creatinine Ratio 19.6, Glucose 128 H, Calcium 8.4 L, Phosphorus 3.4, Magnesium 2.0, Total Bilirubin 0.60, AST 13 L, ALT 21, Alkaline Phosphatase 106, Total Protein 6.4, Albumin 2.6 L, Globulin 3.8, Albumin/Globulin Ratio 0.7 L 12/14/20 05:34: WBC 6.5, RBC 4.27, Hgb 12.5, Hct 38.6, MCV 90.4, MCH 29.3, MCHC 32.4, RDW Std Deviation 46.4 H, RDW Coeff of Sarah 14.0, Plt Count 150, MPV 11.6, Immature Gran % (Auto) 0.300, Neut % (Auto) 75.4 H, Lymph % (Auto) 14.9 L, [place] % (Auto) 8.9, Eos % (Auto) 0.2, Baso % (Auto) 0.3, Absolute Neuts (auto) 4.9, Absolute Lymphs (auto) 0.97, Nucleated RBC % 0 12/14/20 05:34: Sodium 135 L, Potassium 3.7, Chloride 108 H, Carbon Dioxide 24.0, Anion Gap 3 L, BUN 10, Creatinine 0.62, Estim Creat Clear Calc 31.94, Est GFR (MDRD) Af Amer 118, Est GFR (MDRD) Non-Af 98, BUN/Creatinine Ratio 16.3, Glucose 166 H, Calcium 8.2 L Micro: Microbiology 12/12/20 23:57 Nasal Secretion SARS-CoV-2 Antigen (Rapid) - Final Physical Exam Const alert and oriented x3 General Appearance: cooperative Resp normal respiratory effort Cardio regular rate GI GI Narrative: abdomen is soft, but patient complaint of pain all throughout Assessment & Plan Assessment/Plan (1) Stomach volvulus: PLAN: awaiting transfer to [facility] continue IV hydration, IV antibiotics, pain medications, NPO
--- NOTE | 2020-12-14 09:03 | CASEMGMT ---
[facility], the following tertiary facilities are in network: [facility], [facility], [facility], [facility], [facility] and .
[2020-12-14] MEDS: Ciprofloxacin 200 MG/100 ML BAG 100 MG IV ×2 (10:18→21:55)
--- NOTE | 2020-12-14 13:35 | PN.HOSP_ITS ---
Subjective Subjective Patient blood pressure is elevated heart rate controlled. No fever. Intermittent abdominal pain 5/10 intensity, diffuse in nature. No vomiting or nausea. Objective Data Objective Data Vital Signs: Vital Signs Temp Pulse Resp BP Pulse Ox 98.2 F 70 18 153/69 H 93 12/14/20 10:14 12/14/20 10:14 12/14/20 10:14 12/14/20 10:14 12/14/20 10:14 Oxygen Flow Rate (L/min) 2 Oxygen Delivery Method Room Air Weight: 133 lb 9.602 oz Body Mass Index (BMI) 23.6 Intake & Output: Intake and Output for Last 24 Hours 12/13/20 12/13/20 12/14/20 00:59 23:59 23:59 Intake Total 1540 / 1540 Output Total 500 / 500 Balance 1040 / 1040 Lab / Micro Data Result Diagrams: 12/14/20 05:34 12/14/20 05:34 Labs: Laboratory Results - last 24 hr 12/14/20 05:34: WBC 6.5, RBC 4.27, Hgb 12.5, Hct 38.6, MCV 90.4, MCH 29.3, MCHC 32.4, RDW Std Deviation 46.4 H, RDW Coeff of Sarah 14.0, Plt Count 150, MPV 11.6, Immature Gran % (Auto) 0.300, Neut % (Auto) 75.4 H, Lymph % (Auto) 14.9 L, [place] % (Auto) 8.9, Eos % (Auto) 0.2, Baso % (Auto) 0.3, Absolute Neuts (auto) 4.9, Absolute Lymphs (auto) 0.97, Nucleated RBC % 0 12/14/20 05:34: Sodium 135 L, Potassium 3.7, Chloride 108 H, Carbon Dioxide 24.0, Anion Gap 3 L, BUN 10, Creatinine 0.62, Estim Creat Clear Calc 31.94, Est GFR (MDRD) Af Amer 118, Est GFR (MDRD) Non-Af 98, BUN/Creatinine Ratio 16.3, Glucose 166 H, Calcium 8.2 L Micro: Microbiology 12/12/20 23:57 Nasal Secretion SARS-CoV-2 Antigen (Rapid) - Final Physical Exam Narrative General: Alert, Oriented x3, Cooperative HEENT: Atraumatic, PERRLA, EOMI, Normocephalic Oral: No Gingival or Mucosal Lesions/ Ulcerations Neck: Supple, No JVD, Negative Carotid Bruits Lungs: Air entry diminished in bilateral lung bases. No crepitation/rhonchi Cardiovascular: S1-S2 regular, no murmur gallop rub. Abdomen: Diffuse tenderness in abdomen bowel Sounds hyperactive. Voluntary guarding present. No rigidity. : Chronic genitourinary prolapse. No renal angle tenderness. No suprapubic tenderness. Extremities: No edema, Capillary Refill Less than 3 Seconds Skin: No rashes, No breakdown Musculoskeletal: No Tenderness to Palpation of Joints or Extremities Neurological: Cranial nerves II-XII grossly intact, DTR 2+/4 and Symmetrical Psych/Mental Status: Flat affect. Assessment & Plan Assessment/Plan (1) Diverticulitis: (2) Diaphragmatic hernia: QUALIFIERS: Obstruction and gangrene presence: with obstruction but without gangrene Qualified Code(s): K44.0 - Diaphragmatic hernia with obstruction, without gangrene (3) Stomach volvulus: PLAN: CHRIS JUNG, alina a 85 F with multiple comorbidities is being admitted for abdominal pain and CT abdomen was done which showed large left diaphragmatic hernia with possible partial volvulus of the stomach. Acute small bowel diverticulitis with single large diverticulum in distal jejunum with surrounding inflammation. No free perforation or extraluminal gas. Diffuse colonic diverticulosis. 1. Large leg diaphragmatic hernia with partial stomach volvulus, acute small bowel diverticulitis with history of chronic colonic diverticulosis with partial small bowel obstruction[facility]ileus: [facility] IV fluid Ringer lactate. Patient seen by surgeon Dr. Duval. She is accepted in [facility] and will be transferred once bed is available. On IV Cipro and Flagyl. Stool for occult blood, WBC and enteric bacterial pathogen although she is not having any bowel movement currently. Lactic acid normal. Keep n.p.o. lab work for today ordered. 12/14: Discussed with the surgeon Dr. Duval and will try to get to the [facility] early. She does not have leukocytosis or fever or tachycardia. She still has abdominal pain and mild voluntary guarding. On IV antibiotics Cipro and Flagyl 2. Coronary artery disease status post stents and hypertension: Currently patient not having any chest pain or shortness of breath. Twelve-lead EKG ordered. Hold her cardiac medications as she is n.p.o. status. BP elevated on IV hydralazine as needed for systolic BP more than 160 mmHg. 3. 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 VT prophylaxis: Lovenox 40 mg subcu daily Living will/advanced directive/end of life care: Patient does not have living will or advanced directive. After discussion of benefits/risks procedures involved with full code, DNR CC arrest and DNR CC, the patient opted for full code Patient does want artificial life support including intubation, tube feed, ventilator and/chest compression, central venous catheter, vasopressor and DC shock if needed Total time spent in [id number] encounter in discussion of advanced directive 16 minutes. Clinical Impression(s) from Imaging Studies Abdomen/Pelvis CT 12/12/20 19:33 IMPRESSION: 1. Small bowel diverticulitis, unusual appearance. Surgical consultation advised. 2. Extensive colonic diverticulosis. 3. 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 Surgical attention advised. 4. Severe coronary artery disease. Charges/Coding Visit Charges Inpatient E&M: 57244 Subs Hosp L2
--- NOTE | 2020-12-14 14:14 | CASEMGMT ---
SW spoke w/pt in room, offered support. Pt explains that she lives w/her son Hernandez who is 59, has Lyme disease. She states, we do for each other. She states her daughter was just in and reminded pt to not worry about Hernandez, to take care of herself. She is to be transferred up to [facility] once there is a bed available. She states her daughters and son do not always see eye to eye. She states her son does have 4 children of his own who will check in on him. Pt states is okay now, SW explained is available to stop back in to speak w/her further should she want to talk. RAHEL Roe
[2020-12-14] MEDS: hydrALAZINE 20 MG/ML Vial 5 MG IV (17:10)
[2020-12-14] MEDS: Ondansetron 4 MG/2 ML Vial IV (23:04)
[2020-12-15] VITALS (15 sets, daily range): BP systolic 140–195; BP diastolic 58–82; PULSE 76–93; RESP 16–17; TEMP 36.5–37.2; O2SAT 92–96
[2020-12-15] MEDS: proCHLORPERazine 10 MG/2 ML Vial 5 MG IV ×4 (02:58→20:19)
[2020-12-15] MEDS: 0.9% Saline Lock 10 ML Syringe IV (03:00)
[2020-12-15] MEDS: Dext 5%-0.45% NS 1,000 ML 100 ML IV ×2 (03:00→13:42)
[2020-12-15] MEDS: HYDROmorphone 0.5 MG/0.5 ML SYRINGE IV ×5 (03:15→20:19)
[2020-12-15] MEDS: metroNIDAZOLE 500 MG/100 ML BAG 100 MG IV ×3 (05:36→21:26)
[2020-12-15] MEDS: Ondansetron 4 MG/2 ML Vial IV ×2 (06:48→16:14)
[2020-12-15] MEDS: hydrALAZINE 20 MG/ML Vial 5 MG IV (07:47)
[2020-12-15] MEDS: Ciprofloxacin 200 MG/100 ML BAG 100 MG IV ×2 (08:59→22:54)
--- NOTE | 2020-12-15 11:36 | NURSING ---
called [facility] for bed status, no bed at this time.
--- NOTE | 2020-12-15 12:43 | PN.HOSP_ITS ---
Subjective Subjective No fever. Heart rate is controlled. No tachypnea or hypoxia. No bed available in [facility]. Objective Data Objective Data Vital Signs: Vital Signs Temp Pulse Resp BP Pulse Ox 97.9 F 81 16 140/76 H 96 12/15/20 11:09 12/15/20 11:25 12/15/20 11:09 12/15/20 11:09 12/15/20 11:09 Oxygen Flow Rate (L/min) 2 Oxygen Delivery Method Nasal Cannula Weight: 133 lb 14.4 oz Body Mass Index (BMI) 23.6 Intake & Output: Intake and Output for Last 24 Hours 12/13/20 12/14/20 12/15/20 23:59 23:59 23:59 Intake Total 2636.67 / 2636.67 901.66 / 901.66 Output Total 1050 / 1050 Balance 1586.67 / 1586.67 901.66 / 901.66 Lab / Micro Data Result Diagrams: 12/14/20 05:34 12/14/20 05:34 Micro: Microbiology 12/12/20 23:57 Nasal Secretion SARS-CoV-2 Antigen (Rapid) - Final Physical Exam Narrative General: Alert, Oriented x3, Cooperative HEENT: Atraumatic, PERRLA, EOMI, Normocephalic Oral: No Gingival or Mucosal Lesions/ Ulcerations Neck: Supple, No JVD, Negative Carotid Bruits Lungs: Air entry diminished in bilateral lung bases. No crepitation/rhonchi Cardiovascular: S1-S2 regular, no murmur gallop rub. Abdomen: Tenderness restricted to left upper quadrant. Bowel Sounds hyperactive. No rigidity. : Chronic genitourinary prolapse. No renal angle tenderness. No suprapubic tenderness. Extremities: No edema, Capillary Refill Less than 3 Seconds Skin: No rashes, No breakdown Musculoskeletal: No Tenderness to Palpation of Joints or Extremities Neurological: Cranial nerves II-XII grossly intact, DTR 2+/4 and Symmetrical Psych/Mental Status: Flat affect. Assessment & Plan Assessment/Plan (1) Diverticulitis: (2) Diaphragmatic hernia: QUALIFIERS: Obstruction and gangrene presence: with obstruction but without gangrene Qualified Code(s): K44.0 - Diaphragmatic hernia with obstruction, without gangrene (3) Stomach volvulus: PLAN: CHRIS JUNG, is a 85 F with multiple comorbidities is being admitted for abdominal pain and CT abdomen was done which showed large left diaphragmatic hernia with possible partial volvulus of the stomach. Acute small bowel diverticulitis with single large diverticulum in distal jejunum with surrounding inflammation. No free perforation or extraluminal gas. Diffuse colonic diverticulosis. 1. 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 IV fluid Ringer lactate. Patient seen by surgeon Dr. Duval. She is accepted in [facility] and will be transferred once bed is available. On IV Cipro and Flagyl. Stool for occult blood, WBC and enteric bacterial pathogen although she is not having any bowel movement currently. Lactic acid normal. Keep n.p.o. lab work for today ordered. 12/14: Discussed with the surgeon Dr. Duval and will try to get to the [facility] early. She does not have leukocytosis or fever or tachycardia. She still has abdominal pain and mild voluntary guarding. On IV antibiotics Cipro and Flagyl. 12/15: No bed opening [facility]. I called [facility] and put the request for transfer. Waiting for the call back. Continue present treatment n.p.o., IV antibiotics. Patient does not have leukocytosis. 2. Coronary artery disease status post stents and hypertension: Currently patient not having any chest pain or shortness of breath. Twelve-lead EKG ordered. Hold her cardiac medications as she is n.p.o. status. BP elevated on IV hydralazine as needed for systolic BP more than 160 mmHg. 12/15: Blood pressure was hives controlled on IV hydralazine. 3. 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 VT prophylaxis: Lovenox 40 mg subcu daily Living will/advanced directive/end of life care: Patient does not have living will or advanced directive. After discussion of benefits/risks procedures involved with full code, DNR CC arrest and DNR CC, the patient opted for full code Patient does want artificial life support including intubation, tube feed, ventilator and/chest compression, central venous catheter, vasopressor and DC shock if needed Total time spent in tudq-[id number]-feed encounter in discussion of advanced directive 16 minutes. Clinical Impression(s) from Imaging Studies Abdomen/Pelvis CT 12/12/20 19:33 IMPRESSION: 1. Small bowel diverticulitis, unusual appearance. Surgical consultation advised. 2. Extensive colonic diverticulosis. 3. 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 Surgical attention advised. 4. Severe coronary artery disease. Charges/Coding Visit Charges Inpatient E&M: 12897 Subs Hosp L2
[2020-12-15 14:13] LABS: Anion Gap 5 (5-15); BUN 5 mg/dL (7-18); BUN/Creat Ratio 8.8 RATIO (10-20); Calcium,Total 8.6 mg/dL (8.5-10.1); Chloride 104 mmol/L (98-107); Creatinine, Serum 0.56 mg/dL (0.55-1.02); EST Glomerular Filtration Rate 108 mL/min (>60); Est Glom Filt Rate - Afr Amer 131 mL/min (>60); Estimated Creatinine Clearance 31.94 ml/min; Glucose 172 mg/dL (74-106); Potassium 3.3 mmol/L (3.5-5.1); Sodium Level 135 mmol/L (136-145)
--- NOTE | 2020-12-15 14:22 | PCM.PN.SRG ---
Subjective Subjective Patient still with complaint of abdominal pain not passing flatus today, hasn't had bowel movement since being in the hospital still with nausea and retching/dry heaves The patient and daughter are frustrated awaiting transfer to another hospital, but we have called around to all the hospitals in the area and there are no bed openings, they don't understand why there is such a long wait The daughter stated that they do cardiac surgery here, why can't they do her (the patient's) surgery, I told them that this will require special thoracic surgery, but she kept on insisting that they do cardiac surgery here - she asked about transfer to [facility] and I told them that the surgeon there will not accept this patient due to the severity of her condition It is good that patient is hemodynamically stable and is not in extremis Objective Data Objective Data Vital Signs: Vital Signs Temp Pulse Resp BP Pulse Ox 97.9 F 81 16 140/76 H 96 12/15/20 11:09 12/15/20 11:25 12/15/20 11:09 12/15/20 11:09 12/15/20 11:09 Oxygen Flow Rate (L/min) 2 Oxygen Delivery Method Nasal Cannula Weight: 60.736 kg Body Mass Index (BMI) 23.6 Intake & Output: Intake and Output for Last 24 Hours 12/13/20 12/14/20 12/15/20 23:59 23:59 23:59 Intake Total 2636.67 / 2636.67 1233.33 / 1233.33 Output Total 1050 / 1050 Balance 1586.67 / 1586.67 1233.33 / 1233.33 Lab / Micro Data Result Diagrams: 12/14/20 05:34 12/15/20 13:40 Labs: Laboratory Results - last 24 hr 12/15/20 13:40: Sodium 135 L, Potassium 3.3 L, Chloride 104, Carbon Dioxide 26.0, Anion Gap 5, BUN 5 L, Creatinine 0.56, Estim Creat Clear Calc 31.94, Est GFR (MDRD) Af Amer 131, Est GFR (MDRD) Non-Af 108, BUN/Creatinine Ratio 8.8 L, Glucose 172 H, Calcium 8.6 Micro: Microbiology 12/12/20 23:57 Nasal Secretion SARS-CoV-2 Antigen (Rapid) - Final Physical Exam Const alert and oriented x3 Neck supple Resp normal respiratory effort GI GI Narrative: abdomen - unchanged - generalized tenderness Assessment & Plan Assessment/Plan (1) Stomach volvulus: PLAN: The patient still complains of severe abdominal pain, now not passing flatus, not having bowel movements Awaiting transfer to larger medical treatment facility Patient and daughter frustrated regarding wait and daughter is angrily voicing her frustration at the staff (nurses and physicians)
[2020-12-15] MEDS: hydrALAZINE 20 MG/ML Vial 10 MG IV (20:19)
[2020-12-16] VITALS (35 sets, daily range): BP systolic 104–193; BP diastolic 54–99; PULSE 63–145; RESP 14–22; TEMP 36.4–36.9; O2SAT 89–97
[2020-12-16] MEDS: Ondansetron 4 MG/2 ML Vial IV ×3 (01:45→22:14)
[2020-12-16] MEDS: HYDROmorphone 0.5 MG/0.5 ML SYRINGE IV ×5 (01:45→22:17)
[2020-12-16] MEDS: Dext 5%-0.45% NS 1,000 ML 100 ML IV ×3 (01:46→17:03)
[2020-12-16] MEDS: metroNIDAZOLE 500 MG/100 ML BAG 100 MG IV ×3 (05:47→21:59)
[2020-12-16 07:21] LABS: Absolute Lymphocyte Count 0.81 X10^3/uL (0.83-4.51); Basophil# 0.01 X10^3/uL; Basophil% 0.2 % (0-1); Eosinophil# 0.03 X10^3/uL; Eosinophils% 0.7 % (0-5); Hematocrit 40.4 % (37-47); Hemoglobin 13.4 g/dL (12.0-15.0); Lymphocyte # 0.81 X10^3/ul (0.83-4.51); Lymphocyte % 18.2 % (19-41); Mean Corp Hgb Conc 33.2 g/dL (32-36); Mean Corpuscular Hgb 29.1 pg (27.0-32.0); Mean Corpuscular Volume 87.6 fL (81-99); Monocyte# 0.56 X10^3/uL; Monocyte% 12.6 % (0-10); NRBC Flagged by Analyzer 0 % (0-5); Neutrophil # 3.03 X10^3/uL (2.7-7.7); Neutrophil % 67.9 % (47-70); Platelet Count 215 K/mm3 (150-450); RBC Distribution Width CV 13.4 % (11.6-14.6); RBC Distribution Width SD 43.1 fl (35.1-43.9); Red Blood Count 4.61 M/mm3 (4.2-5.4); White Blood Count 4.5 K/mm3 (4.4-11.0)
[2020-12-16] MEDS: proCHLORPERazine 10 MG/2 ML Vial 5 MG IV ×2 (07:36→13:18)
[2020-12-16] MEDS: hydrALAZINE 20 MG/ML Vial 10 MG IV (07:38)
[2020-12-16 07:47] LABS: Anion Gap 5 (5-15); BUN 3 mg/dL (7-18); BUN/Creat Ratio 5.5 RATIO (10-20); Calcium,Total 8.1 mg/dL (8.5-10.1); Chloride 105 mmol/L (98-107); Creatinine, Serum 0.54 mg/dL (0.55-1.02); EST Glomerular Filtration Rate 113 mL/min (>60); Est Glom Filt Rate - Afr Amer 137 mL/min (>60); Estimated Creatinine Clearance 31.94 ml/min; Glucose 153 mg/dL (74-106); Potassium 3.1 mmol/L (3.5-5.1); Sodium Level 137 mmol/L (136-145)
[2020-12-16] MEDS: Ciprofloxacin 200 MG/100 ML BAG 100 MG IV ×2 (09:24→23:04)
--- NOTE | 2020-12-16 10:31 | EKG12_ITS ---
Test Reason : TACHY Blood Pressure : / mmHG Vent. Rate : 148 BPM Atrial Rate : 156 BPM P-R Int : 000 ms QRS Dur : 086 ms QT Int : 342 ms P-R-T Axes : 000 047 -19 degrees QTc Int : 536 ms Atrial fibrillation with premature ventricular or aberrantly conducted complexes Marked ST abnormality, possible lateral subendocardial injury Abnormal ECG Confirmed by BHAVANA SILVERMAN, ALON ([id number]), book editor MAGDY BRADFORD ([id number]) on 12/17/2020 11:38:04 AM Referred By: LISETH Confirmed By:ALON BATEMAN MD
--- NOTE | 2020-12-16 11:18 | NURSING ---
called report to pcu, pt transferred to pcu 111. family at bedside.
[2020-12-16] MEDS: dilTIAZem 25 MG/5 ML Vial 10 MG IV BOLUS (11:31)
[2020-12-16] MEDS: 0.9% Saline Lock 10 ML Syringe IV ×3 (11:39→22:05)
[2020-12-16 11:48] LABS: Troponin-I HS 95 pg/mL (3.0-54.0)
--- NOTE | 2020-12-16 12:32 | PCM.PN.SRG ---
Subjective Subjective patient still with 7-8 out of 10 abdominal pain intermittently, still with nausea and dry heaving no flatus, no BM patient states just let me , but when DNR status was discussed, she wanted full code still awaiting transfer to [facility] Objective Data Objective Data Vital Signs: Vital Signs Temp Pulse Resp BP Pulse Ox 97.6 F L 137 H 16 115/77 93 12/16/20 07:40 12/16/20 11:45 12/16/20 11:45 12/16/20 11:45 12/16/20 11:45 Oxygen Flow Rate (L/min) 2 Oxygen Delivery Method Nasal Cannula Weight: 61.7 kg Body Mass Index (BMI) 23.6 Intake & Output: Intake and Output for Last 24 Hours 12/14/20 12/15/20 12/16/20 23:59 23:59 23:59 Intake Total 2636.67 / 2636.67 1433.33 / 1433.33 2306.66 / 2306.66 Output Total 1050 / 1050 Balance 1586.67 / 1586.67 1433.33 / 1433.33 2306.66 / 2306.66 Lab / Micro Data Result Diagrams: 12/17/20 08:56 12/17/20 08:56 Labs: Laboratory Results - last 24 hr 12/15/20 13:40: Sodium 135 L, Potassium 3.3 L, Chloride 104, Carbon Dioxide 26.0, Anion Gap 5, BUN 5 L, Creatinine 0.56, Estim Creat Clear Calc 31.94, Est GFR (MDRD) Af Amer 131, Est GFR (MDRD) Non-Af 108, BUN/Creatinine Ratio 8.8 L, Glucose 172 H, Calcium 8.6 12/16/20 06:45: WBC 4.5, RBC 4.61, Hgb 13.4, Hct 40.4, MCV 87.6, MCH 29.1, MCHC 33.2, RDW Std Deviation 43.1, RDW Coeff of Sarah 13.4, Plt Count 215, MPV 10.0, Immature Gran % (Auto) 0.400, Neut % (Auto) 67.9, Lymph % (Auto) 18.2 L, [place] % (Auto) 12.6 H, Eos % (Auto) 0.7, Baso % (Auto) 0.2, Absolute Neuts (auto) 3.0, Absolute Lymphs (auto) 0.81 L, Nucleated RBC % 0 12/16/20 06:45: Sodium 137, Potassium 3.1 L, Chloride 105, Carbon Dioxide 27.0, Anion Gap 5, BUN 3 L, Creatinine 0.54 L, Estim Creat Clear Calc 31.94, Est GFR (MDRD) Af Amer 137, Est GFR (MDRD) Non-Af 113, BUN/Creatinine Ratio 5.5 L, Glucose 153 H, Calcium 8.1 L 12/16/20 06:45: Troponin I High Sens 95 H Micro: Microbiology 12/12/20 23:57 Nasal Secretion SARS-CoV-2 Antigen (Rapid) - Final Physical Exam Const alert and oriented x3 Resp normal respiratory effort GI GI Narrative: abdomen with generalized tenderness Assessment & Plan Assessment/Plan (1) Stomach volvulus: PLAN: patient is stable for now, however cannot take in po at some point, will have to consider DESIRE, placement of PICC still awaiting transfer to larger [facility]
--- NOTE | 2020-12-16 13:15 | PCM.PN.HOSP ---
Subjective Subjective Doing okay today, still has some pain. States she did go into A. fib this morning, there were some ST depressions initial troponin was slightly elevated at 95. Objective Data Objective Data Vital Signs: Vital Signs Temp Pulse Resp BP Pulse Ox 97.9 F 124 H 20 H 136/75 H 94 12/16/20 12:00 12/16/20 13:00 12/16/20 12:15 12/16/20 13:00 12/16/20 12:45 Oxygen Flow Rate (L/min) 2 Oxygen Delivery Method Nasal Cannula Weight: 136 lb 0.403 oz Body Mass Index (BMI) 23.6 Intake & Output: Intake and Output for Last 24 Hours 12/15/20 12/16/20 12/17/20 03:59 03:59 03:59 Intake Total 2500.00 / 2500.00 2523.33 / 2523.33 1025.58 / 1025.58 Output Total 750 / 750 Balance 1750.00 / 1750.00 2523.33 / 2523.33 1025.58 / 1025.58 Lab / Micro Data Result Diagrams: 12/16/20 06:45 12/16/20 06:45 Labs: Laboratory Results - last 24 hr 12/15/20 13:40: Sodium 135 L, Potassium 3.3 L, Chloride 104, Carbon Dioxide 26.0, Anion Gap 5, BUN 5 L, Creatinine 0.56, Estim Creat Clear Calc 31.94, Est GFR (MDRD) Af Amer 131, Est GFR (MDRD) Non-Af 108, BUN/Creatinine Ratio 8.8 L, Glucose 172 H, Calcium 8.6 12/16/20 06:45: WBC 4.5, RBC 4.61, Hgb 13.4, Hct 40.4, MCV 87.6, MCH 29.1, MCHC 33.2, RDW Std Deviation 43.1, RDW Coeff of [place]rah 13.4, Plt Count 215, MPV 10.0, Immature Gran % (Auto) 0.400, Neut % (Auto) 67.9, Lymph % (Auto) 18.2 L, [place] % (Auto) 12.6 H, Eos % (Auto) 0.7, Baso % (Auto) 0.2, Absolute Neuts (auto) 3.0, Absolute Lymphs (auto) 0.81 L, Nucleated RBC % 0 11/10/21 06:45: Sodium 137, Potassium 3.1 L, Chloride 105, Carbon Dioxide 27.0, Anion Gap 5, BUN 3 L, Creatinine 0.54 L, Estim Creat Clear Calc 31.94, Est GFR (MDRD) Af Amer 137, Est GFR (MDRD) Non-Af 113, BUN/Creatinine Ratio 5.5 L, Glucose 153 H, Calcium 8.1 L 12/16/20 06:45: Troponin I High Sens 95 H Micro: Microbiology 12/12/20 23:57 Nasal Secretion SARS-CoV-2 Antigen (Rapid) - Final Physical Exam Const alert, oriented x3 and no apparent distress General Appearance: cooperative HEENT normocephalic and moist oral mucous membranes Eyes PERRL, EOMs intact bilaterally and conjunctivae normal Neck supple and no JVD Resp normal respiratory effort, no retractions, no use of accessory muscles and clear to auscultation bilaterally Auscultation: Negative for crackles, rales, rhonchi or wheezes Cardio S1 normal heart sound, S2 normal heart sound and no murmurs Rate: tachycardic Rhythm: abnormal rhythm GI soft to palpation, non-tender and non-distended; Negative for hepatosplenomegaly Extremity no clubbing, cyanosis or edema Skin no rashes or lesions noted Neuro no focal motor deficits and no sensory deficits noted Psych Mood & Affect: flat affect Assessment & Plan Assessment/Plan (1) Diverticulitis: (2) Diaphragmatic hernia: QUALIFIERS: Obstruction and gangrene presence: with obstruction but without gangrene Qualified Code(s): K44.0 - Diaphragmatic hernia with obstruction, without gangrene (3) Stomach volvulus: PLAN: 1. Large leg diaphragmatic hernia with partial stomach volvulus, acute small bowel diverticulitis with history of chronic colonic diverticulosis with partial small bowel obstruction/ileus: Patient is being admitted MedSurg on education reporter. IV fluid Ringer lactate. Patient seen by surgeon Dr. Duval. She is accepted in [facility] and will be transferred once bed is available. On IV Cipro and Flagyl. Stool for occult blood, WBC and enteric bacterial pathogen although she is not having any bowel movement currently. Lactic acid normal. Keep n.p.o. lab work for today ordered. 12/14: Discussed with the surgeon Dr. Duval and will try to get to the [facility] early. She does not have leukocytosis or fever or tachycardia. She still has abdominal pain and mild voluntary guarding. On IV antibiotics Cipro and Flagyl. 12/15: No bed opening [facility]. I called [facility] and put the request for transfer. Waiting for the call back. Continue present treatment n.p.o., IV antibiotics. Patient does not have leukocytosis. 12/16/2020: We will place a PICC line today and hopefully be able to start on TPN in the morning. Given how long she has been n.p.o. and given the likely prolonged postoperative course, will start her on nutrition 2. Coronary artery disease status post stents and hypertension/new onset A. fib: Currently patient not having any chest pain or shortness of breath. Twelve-lead EKG ordered. Hold her cardiac medications as she is n.p.o. status. BP elevated on IV hydralazine as needed for systolic BP more than 160 mmHg. 12/15: Blood pressure was hives controlled on IV hydralazine. 12/16/2020: She went into new onset A. fib with RVR. This is likely secondary to left atrial irritation from her diaphragmatic hernia. Started on Cardizem drip and will monitor. Will obtain serial troponins, she did have on EKG lateral ST depressions likely consistent with demand ischemia. Still awaiting transfer to [facility] but they were updated with this change in condition 3. 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
--- NOTE | 2020-12-16 14:29 | EKG12_ITS ---
Test Reason : RTHYTHM CHANGE Blood Pressure : / mmHG Vent. Rate : 123 BPM Atrial Rate : 468 BPM P-R Int : 000 ms QRS Dur : 078 ms QT Int : 342 ms P-R-T Axes : 000 046 025 degrees QTc Int : 489 ms Atrial fibrillation Nonspecific ST abnormality Abnormal ECG Confirmed by BHAVANA SILVERMAN, ALON ([id number]), editor newspaper MAGDY BRADFORD ([id number]) on 12/17/2020 11:40:22 AM Referred By: USHA Confirmed By:ALON BATEMAN MD
[2020-12-16 14:56] LABS: Troponin-I HS 242 pg/mL (3.0-54.0)
--- NOTE | 2020-12-16 15:46 | EKG12_ITS ---
Test Reason : RTHYTHM CHANGE Blood Pressure : / mmHG Vent. Rate : 070 BPM Atrial Rate : 070 BPM P-R Int : 144 ms QRS Dur : 080 ms QT Int : 424 ms P-R-T Axes : 066 032 042 degrees QTc Int : 457 ms Normal sinus rhythm Normal ECG Confirmed by BHAVANA SILVERMAN, ALON ([id number]), acquisition editor MAGDY BRADFORD ([id number]) on 12/17/2020 11:40:46 AM Referred By: USHA Confirmed By:ALON BATEMAN MD
--- NOTE | 2020-12-16 15:57 | NURSING ---
Called [facility] transfer Line [phone] to update them on the change in patient condition and cardizem gtt. Transfer center dispatcher stated this qualifies the patient for ICU and they are not accepting ICU transfers. She requests Dr Castañeda call her to discuss further. Relayed this to Dr Castañeda. Voiced understanding.
[2020-12-16] MEDS: Potassium Chloride 10mEq/100mL 10 MEQ/100 ML IV.SOLN. 100 MEQ IV BOLUS ×4 (17:11→20:35)
[2020-12-16 18:07] LABS: Troponin-I HS 564 pg/mL (3.0-54.0)
[2020-12-16 20:10] LABS: Troponin-I HS 739 pg/mL (3.0-54.0)
[2020-12-17] VITALS (30 sets, daily range): BP systolic 133–192; BP diastolic 57–82; PULSE 61–97; RESP 12–20; TEMP 36.3–36.7; O2SAT 90–99
[2020-12-17] MEDS: Dext 5%-0.45% NS 1,000 ML 100 ML IV ×3 (01:31→21:10)
[2020-12-17] MEDS: metroNIDAZOLE 500 MG/100 ML BAG 100 MG IV ×3 (05:40→21:11)
[2020-12-17] MEDS: HYDROmorphone 0.5 MG/0.5 ML SYRINGE IV ×4 (05:46→22:29)
--- NOTE | 2020-12-17 07:20 | PN.SURG_ITS ---
Subjective Subjective patient developed afib with RVR, transferred to PCU this morning, patient notes that abdominal pain is the same Objective Data Objective Data Vital Signs: Vital Signs Temp Pulse Resp BP Pulse Ox 98.1 F 67 14 152/69 H 97 12/17/20 00:00 12/17/20 07:00 12/17/20 07:00 12/17/20 07:00 12/17/20 07:00 Oxygen Flow Rate (L/min) 2 Oxygen Delivery Method Nasal Cannula Weight: 61.7 kg Body Mass Index (BMI) 23.6 Intake & Output: Intake and Output for Last 24 Hours 12/15/20 12/16/20 12/17/20 23:59 23:59 23:59 Intake Total 1433.33 / 1433.33 3362.67 / 3367.67 1086.67 / 1086.67 Balance 1433.33 / 1433.33 3362.67 / 3367.67 1086.67 / 1086.67 Lab / Micro Data Result Diagrams: 12/17/20 08:56 12/17/20 08:56 Labs: Laboratory Results - last 24 hr 12/16/20 06:45: WBC 4.5, RBC 4.61, Hgb 13.4, Hct 40.4, MCV 87.6, MCH 29.1, MCHC 33.2, RDW Std Deviation 43.1, RDW Coeff of Sarah 13.4, Plt Count 215, MPV 10.0, Immature Gran % (Auto) 0.400, Neut % (Auto) 67.9, Lymph % (Auto) 18.2 L, [place] % (Auto) 12.6 H, Eos % (Auto) 0.7, Baso % (Auto) 0.2, Absolute Neuts (auto) 3.0, Absolute Lymphs (auto) 0.81 L, Nucleated RBC % 0 12/16/20 06:45: Sodium 137, Potassium 3.1 L, Chloride 105, Carbon Dioxide 27.0, Anion Gap 5, BUN 3 L, Creatinine 0.54 L, Estim Creat Clear Calc 31.94, Est GFR (MDRD) Af Amer 137, Est GFR (MDRD) Non-Af 113, BUN/Creatinine Ratio 5.5 L, Glucose 153 H, Calcium 8.1 L 12/16/20 06:45: Troponin I High Sens 95 H 12/16/20 14:05: Troponin I High Sens 242 H* 12/16/20 16:55: Troponin I High Sens 564 H* 12/16/20 19:01: Troponin I High Sens 739 H* Micro: Microbiology 12/12/20 23:57 Nasal Secretion SARS-CoV-2 Antigen (Rapid) - Final Physical Exam Const alert and oriented x3 HEENT normocephalic Resp normal respiratory effort GI GI Narrative: abdomen soft and with diffuse tenderness Assessment & Plan Assessment/Plan (1) Diaphragmatic hernia: QUALIFIERS: Obstruction and gangrene presence: with obstruction but without gangrene Qualified Code(s): K44.0 - Diaphragmatic hernia with obstruction, without gangrene PLAN: continue present therapy still awaiting transfer to a larger [facility] PICC line placed, can start TPN
--- NOTE | 2020-12-17 07:35 | ECHOD_ITS ---
Reason For Study: AFIB/FLUTTER Procedure This was a 2D Doppler, Color Flow transthoracic echocardiogram. The exam was of adequate technical quality. Exam performed in department. Left Ventricle Normal LV size. Left ventricular systolic function is normal. The estimated ejection fraction is 65 %. There is evidence of diastolic dysfunction. No regional wall motion abnormalities noted. Right Ventricle Normal RV size. Normal systolic function. Atria The left atrium is moderately enlarged. Normal right atrium. No doppler evidence for ASD. Mitral Valve There is moderate to severe mitral annular calcification. Extension of the mitral annular calcification onto the base of the posterior mitral valve leaflet. The mitral valve chordae are thickened and/or calcified. Mild-Moderate (1-2+) eccentric mitral valve insufficiency. Tricuspid Valve Normal tricuspid valve. Moderate (2+) eccentric tricuspid valve insufficiency. Right ventricular systolic pressure estimated to be 48 mmHg. Aortic Valve Trisinus/trileaflet aortic valve. Moderate focal aortic valve calcification. Trivial aortic valve insufficiency. Pulmonic Valve The pulmonic valve is not well visualized. Mild (1+) pulmonic valve insufficiency. Great Vessels Normal sized aortic root. Pericardium/Pleural No pericardial effusion. MMode/2D Measurements & Calculations LVIDd: 4.3 cm IVSd: 1.0 cm Ao root diam: 3.2 cm LVIDs: 2.6 cm LVPWd: 0.95 cm RVDd: 2.9 cm FS: 37.9 % LAV(MOD-bp): 92.4 ml LA A4 area: 26.9 cm2 LA dimension(2D): 4.4 cm LAV(MOD-bp) Indexed: 56.9 ml/m2 LAV(MOD-sp2): 91.9 ml LAV(MOD-sp4): 96.4 ml RA A4 area: 16.6 cm2 Time Measurements MV dec time: 0.24 sec Doppler Measurements & Calculations MV E max neil: 121.5 cm/sec Lat Peak E' Neil: 7.4 cm/sec Med Peak E' Neil: 5.7 cm/sec MV A max neil: 136.4 cm/sec E/E' lat: 16.5 E/E' med: 21.2 MV E/A: 0.89 Ao V2 max: 184.2 cm/sec AI max neil: 398.6 cm/sec LV V1 max: 143.7 cm/sec Ao max P.6 mmHg AI max P.6 mmHg LV V1 max P.3 mmHg Ao V2 mean: 117.2 cm/sec AI dec slope: 175.8 cm/sec2 LV V1 mean P.6 mmHg Ao mean P.1 mmHg AI P1/2t: 664.0 msec LV V1 mean: 89.1 cm/sec Ao V2 VTI: 34.9 cm LV V1 VTI: 27.1 cm PA V2 max: 100.0 cm/sec TR max neil: 334.3 cm/sec TR max P.0 mmHg ECHO/Echo Complete Interpretation Summary Left ventricular systolic function is normal. The estimated ejection fraction is 65 %. The left atrium is moderately enlarged. There is moderate to severe mitral annular calcification. Extension of the mitral annular calcification onto the base of the posterior mi tral valve leaflet. The mitral valve chordae are thickened and/or calcified. Mild-Moderate (1-2+) eccentric mitral valve insufficiency. Moderate (2+) eccentric tricuspid valve insufficiency. Moderate focal aortic valve calcification. Trivial aortic valve insufficiency. Mild (1+) pulmonic valve insufficiency. Right ventricular systolic pressure estimated to be 48 mmHg. There is evidence of diastolic dysfunction. Ordering Physician: Jarret Castañeda Referring Physician: Ness Tello Performed By: Jolene Lino, KEVIN, RVT
[2020-12-17] MEDS: Ciprofloxacin 200 MG/100 ML BAG 100 MG IV ×2 (08:00→22:37)
[2020-12-17 09:02] LABS: Absolute Lymphocyte Count 0.77 X10^3/uL (0.83-4.51); Absolute Neutrophil Count 3.1 X10^3/uL (2.0-7.7); Basophil# 0.01 X10^3/uL; Basophil% 0.2 % (0-1); Eosinophil# 0.02 X10^3/uL; Eosinophils% 0.4 % (0-5); Hematocrit 42.6 % (37-47); Hemoglobin 13.5 g/dL (12.0-15.0); Lymphocyte # 0.77 X10^3/ul (0.83-4.51); Lymphocyte % 17.2 % (19-41); Mean Corp Hgb Conc 31.7 g/dL (32-36); Mean Corpuscular Hgb 28.4 pg (27.0-32.0); Mean Corpuscular Volume 89.7 fL (81-99); Mean Platelet Vol. 11.4 fl (6.2-12.0); Monocyte# 0.57 X10^3/uL; Monocyte% 12.7 % (0-10); NRBC Flagged by Analyzer 0 % (0-5); Neutrophil # 3.09 X10^3/uL (2.7-7.7); Neutrophil % 69.1 % (47-70); Platelet Count 226 K/mm3 (150-450); RBC Distribution Width CV 13.3 % (11.6-14.6); RBC Distribution Width SD 43.8 fl (35.1-43.9); Red Blood Count 4.75 M/mm3 (4.2-5.4); White Blood Count 4.5 K/mm3 (4.4-11.0)
[2020-12-17 09:36] LABS: Anion Gap 7 (5-15); BUN 4 mg/dL (7-18); Calcium,Total 8.2 mg/dL (8.5-10.1); Chloride 102 mmol/L (98-107); Creatinine, Serum 0.66 mg/dL (0.55-1.02); EST Glomerular Filtration Rate 90 mL/min (>60); Est Glom Filt Rate - Afr Amer 108 mL/min (>60); Estimated Creatinine Clearance 31.94 ml/min; Glucose 215 mg/dL (74-106); Sodium Level 134 mmol/L (136-145)
[2020-12-17] MEDS: Ondansetron 4 MG/2 ML Vial IV (12:10)
[2020-12-17] MEDS: hydrALAZINE 20 MG/ML Vial 10 MG IV ×2 (12:17→22:31)
--- NOTE | 2020-12-17 13:44 | PN.HOSP_ITS ---
Subjective Subjective No issues overnight, she did convert back into normal sinus rhythm Objective Data Objective Data Vital Signs: Vital Signs Temp Pulse Resp BP Pulse Ox 97.4 F L 80 18 192/81 H 96 12/17/20 08:01 12/17/20 12:17 12/17/20 11:00 12/17/20 12:17 12/17/20 12:41 Oxygen Flow Rate (L/min) 2 Oxygen Delivery Method Nasal Cannula Weight: 136 lb 0.403 oz Body Mass Index (BMI) 23.6 Intake & Output: Intake and Output for Last 24 Hours 12/16/20 12/17/20 12/18/20 03:59 03:59 03:59 Intake Total 2523.33 / 2523.33 3036.01 / 3041.01 1385 / 1385 Balance 2523.33 / 2523.33 3036.01 / 3041.01 1385 / 1385 Lab / Micro Data Result Diagrams: 12/17/20 08:56 12/17/20 08:56 Labs: Laboratory Results - last 24 hr 12/16/20 14:05: Troponin I High Sens 242 H* 12/16/20 16:55: Troponin I High Sens 564 H* 12/16/20 19:01: Troponin I High Sens 739 H* 12/17/20 08:56: Sodium 134 L, Potassium 4.0, Chloride 102, Carbon Dioxide 25.0, Anion Gap 7, BUN 4 L, Creatinine 0.66, Estim Creat Clear Calc 31.94, Est GFR (MDRD) Af Amer 108, Est GFR (MDRD) Non-Af 90, BUN/Creatinine Ratio 6.0 L, Glucose 215 H, Calcium 8.2 L 12/17/20 08:56: WBC 4.5, RBC 4.75, Hgb 13.5, Hct 42.6, MCV 89.7, MCH 28.4, MCHC 31.7 L, RDW Std Deviation 43.8, RDW Coeff of Sarah 13.3, Plt Count 226, MPV 11.4, Immature Gran % (Auto) 0.400, Neut % (Auto) 69.1, Lymph % (Auto) 17.2 L, Eagle % (Auto) 12.7 H, Eos % (Auto) 0.4, Baso % (Auto) 0.2, Absolute Neuts (auto) 3.1, Absolute Lymphs (auto) 0.77 L, Nucleated RBC % 0 Micro: Microbiology 12/12/20 23:57 Nasal Secretion SARS-CoV-2 Antigen (Rapid) - Final Radiography Diagnostic Testing: Radiology Impression Echocardiogram 12/17/20 07:35 Interpretation Summary Left ventricular systolic function is normal. The estimated ejection fraction is 65 %. The left atrium is moderately enlarged. There is moderate to severe mitral annular calcification. Extension of the mitral annular calcification onto the base of the posterior mitral valve leaflet. The mitral valve chordae are thickened and/or calcified. Mild-Moderate (1-2+) eccentric mitral valve insufficiency. Moderate (2+) eccentric tricuspid valve insufficiency. Moderate focal aortic valve calcification. Trivial aortic valve insufficiency. Mild (1+) pulmonic valve insufficiency. Right ventricular systolic pressure estimated to be 48 mmHg. There is evidence of diastolic dysfunction. Ordering Physician: Jarret Castañeda Referring Physician: Ness Tello Performed By: Jolene Lino, RDCS, RVT Physical Exam Const alert, oriented x3 and no apparent distress General Appearance: cooperative HEENT normocephalic and moist oral mucous membranes Eyes PERRL, EOMs intact bilaterally and conjunctivae normal Neck supple and no JVD Resp normal respiratory effort, no retractions, no use of accessory muscles and clear to auscultation bilaterally Auscultation: Negative for crackles, rales, rhonchi or wheezes Cardio S1 normal heart sound, S2 normal heart sound and no murmurs Rate: tachycardic Rhythm: abnormal rhythm GI soft to palpation, non-tender and non-distended; Negative for hepatosplenomegaly Extremity no clubbing, cyanosis or edema Skin no rashes or lesions noted Neuro no focal motor deficits and no sensory deficits noted Psych affect normal Appearance: appropriate Mood & Affect: flat affect Assessment & Plan Assessment/Plan (1) Diverticulitis: (2) Diaphragmatic hernia: QUALIFIERS: Obstruction and gangrene presence: with obstruction but without gangrene Qualified Code(s): K44.0 - Diaphragmatic hernia with obstr uction, without gangrene (3) Stomach volvulus: PLAN: 1. 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 IV fluid Ringer lactate. Patient seen by surgeon Dr. Duval. She is ac cepted in [facility] and will be transferred once bed is available. On IV Cipro and Flagyl. Stool for occult blood, WBC and enteric bacterial pathogen although she is not having any bowel movement currently. Lactic acid normal. Keep n.p.o. lab work for today ordered. 12/14: Discussed with the surgeon Dr. Duval and will try to get to the [facility] early. She does not have leukocytosis or fever or tachycardia. She still has abdominal pain and mild voluntary guarding. On IV antibiotics Cipro and Flagyl. 12/15: No bed opening [facility]. I called [facility] and put the request for transfer. Waiting for the call back. Continue present treatment n.p.o., IV antibiotics. Patient does not have leukocytosis. 12/16/2020: We will place a PICC line today and hopefully be able to start on TPN in the morning. Given how long she has been n.p.o. and given the likely prolonged postoperative course, will start her on nutrition 12/17/2020: She continues to be n.p.o., PICC line was placed yesterday we will start with artificial nutrition today. 2. Coronary artery disease status post stents and hypertension/new onset A. fib: Currently patient not having any chest pain or shortness of breath. Twelve-lead EKG ordered. Hold her cardiac medications as she is n.p.o. status. BP elevated on IV hydralazine as needed for systolic BP more than 160 mmHg. 12/15: Blood pressure was hives controlled on IV hydralazine. 12/16/2020: She went into new onset A. fib with RVR. This is likely secondary to left atrial irritation from her diaphragmatic hernia. Started on Cardizem drip and will monitor. Will obtain serial troponins, she did have on EKG lateral ST depressions likely consistent with demand ischemia. Still awaiting transfer to [facility] but they were updated with this change in condition 12/17/2020: Echo with moderate pulmonary hypertension with RVSP of 40 mmHg, there is no wall motion abnormality therefore the elevated troponin is likely demand ischemia secondary to her elevated heart rate with her A. fib yesterday her A. fib is likely related to her hiatal hernia. Plan is for operative repair at the [facility] therefore hold off of any anticoagulation at this time 3. 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
[2020-12-17 14:46] LABS: Bilirubin, Direct 0.16 mg/dL (0.00-0.30)
[2020-12-18] VITALS (33 sets, daily range): BP systolic 131–188; BP diastolic 60–103; PULSE 63–101; RESP 10–27; TEMP 36.3–37.1; O2SAT 92–98
[2020-12-18 00:06] LABS: Bedside Glucose 197 mg/dL (70-110)
[2020-12-18] MEDS: Ondansetron 4 MG/2 ML Vial IV ×2 (02:29→11:29)
[2020-12-18] MEDS: HYDROmorphone 0.5 MG/0.5 ML SYRINGE IV ×3 (02:30→11:24)
[2020-12-18] MEDS: 0.9% Saline Lock 10 ML Syringe IV ×4 (02:34→20:13)
[2020-12-18] MEDS: metroNIDAZOLE 500 MG/100 ML BAG 100 MG IV ×3 (05:32→21:56)
[2020-12-18 05:41] LABS: Bedside Glucose 188 mg/dL (70-110)
[2020-12-18] MEDS: proCHLORPERazine 10 MG/2 ML Vial 5 MG IV ×3 (06:06→20:11)
[2020-12-18 07:34] LABS: Absolute Lymphocyte Count 0.74 X10^3/uL (0.83-4.51); Basophil# 0.02 X10^3/uL; Basophil% 0.4 % (0-1); Eosinophil# 0.02 X10^3/uL; Eosinophils% 0.4 % (0-5); Hematocrit 39.5 % (37-47); Lymphocyte # 0.74 X10^3/ul (0.83-4.51); Lymphocyte % 13.5 % (19-41); Mean Corp Hgb Conc 32.9 g/dL (32-36); Mean Platelet Vol. 9.3 fl (6.2-12.0); Monocyte# 0.72 X10^3/uL; Monocyte% 13.1 % (0-10); NRBC Flagged by Analyzer 0 % (0-5); Neutrophil # 3.98 X10^3/uL (2.7-7.7); Neutrophil % 72.4 % (47-70); Platelet Count 206 K/mm3 (150-450); RBC Distribution Width CV 13.8 % (11.6-14.6); RBC Distribution Width SD 44.7 fl (35.1-43.9); Red Blood Count 4.49 M/mm3 (4.2-5.4); White Blood Count 5.5 K/mm3 (4.4-11.0)
[2020-12-18 07:57] LABS: International Normalized Ratio 1.2; Prothrombin Time (Protime)PT. 14.7 SECONDS (11.7-14.9)
[2020-12-18 08:08] LABS: ALB/GLOB Ratio 0.5 RATIO (0.9-2.4); AST(SGOT) 15 U/L (15-37); Alanine Aminotransfer ALT/SGPT 13 U/L (13-56); Albumin, Serum 1.9 g/dL (3.2-5.0); Alkaline Phosphatase 79 U/L (45-117); Anion Gap 4 (5-15); BUN 9 mg/dL (7-18); BUN/Creat Ratio 17.3 RATIO (10-20); Chloride 104 mmol/L (98-107); Creatinine, Serum 0.52 mg/dL (0.55-1.02); EST Glomerular Filtration Rate 119 mL/min (>60); Est Glom Filt Rate - Afr Amer 144 mL/min (>60); Estimated Creatinine Clearance 31.94 ml/min; Globulin 3.8 g/dL (2.2-4.2); Glucose 213 mg/dL (74-106); Magnesium 2.1 mg/dL (1.6-2.6); Phosphorus 1.8 mg/dL (2.5-4.9); Potassium 3.2 mmol/L (3.5-5.1); Protein, Total 5.7 g/dL (6.4-8.2); Sodium Level 134 mmol/L (136-145); Triglycerides 51 mg/dL
[2020-12-18] MEDS: Ciprofloxacin 200 MG/100 ML BAG 100 MG IV ×2 (09:51→20:12)
--- NOTE | 2020-12-18 11:27 | PN.SURG_ITS ---
Subjective Subjective patient complaint of increasing abdominal pain she would like to discuss hospice Objective Data Objective Data Vital Signs: Vital Signs Temp Pulse Resp BP Pulse Ox 97.4 F L 84 24 H 176/73 H 93 12/18/20 08:00 12/18/20 09:00 12/18/20 09:00 12/18/20 09:00 12/18/20 09:08 Oxygen Flow Rate (L/min) 3 Oxygen Delivery Method Room Air Weight: 62.2 kg Body Mass Index (BMI) 23.6 Intake & Output: Intake and Output for Last 24 Hours 12/16/20 12/17/20 12/18/20 23:59 23:59 23:59 Intake Total 3362.67 / 3367.67 3981.84 / 3986.84 745.00 / 745.00 Balance 3362.67 / 3367.67 3981.84 / 3986.84 745.00 / 745.00 Lab / Micro Data Result Diagrams: 12/18/20 07:22 12/18/20 07:22 Labs: Laboratory Results - last 24 hr 12/17/20 08:56: Total Bilirubin 0.40, Direct Bilirubin 0.16, Indirect Bilirubin 0.20 12/17/20 23:59: POC Glucose 197 H 12/18/20 05:37: POC Glucose 188 H 12/18/20 07:22: WBC 5.5, RBC 4.49, Hgb 13.0, Hct 39.5, MCV 88.0, MCH 29.0, MCHC 32.9, RDW Std Deviation 44.7 H, RDW Coeff of Sarah 13.8, Plt Count 206, MPV 9.3, Immature Gran % (Auto) 0.200, Neut % (Auto) 72.4 H, Lymph % (Auto) 13.5 L, Prentiss % (Auto) 13.1 H, Eos % (Auto) 0.4, Baso % (Auto) 0.4, Absolute Neuts (auto) 4.0, Absolute Lymphs (auto) 0.74 L, Nucleated RBC % 0 12/18/20 07:22: PT 14.7, INR 1.2 12/18/20 07:22: Sodium 134 L, Potassium 3.2 L, Chloride 104, Carbon Dioxide 26.0, Anion Gap 4 L, BUN 9, Creatinine 0.52 L, Estim Creat Clear Calc 31.94, Est GFR (MDRD) Af Amer 144, Est GFR (MDRD) Non-Af 119, BUN/Creatinine Ratio 17.3, Glucose 213 H, Calcium 8.0 L, Phosphorus 1.8 L, Magnesium 2.1, Total Bilirubin 0.30, AST 15, ALT 13, Alkaline Phosphatase 79, Total Protein 5.7 L, Albumin 1.9 L, Globulin 3.8, Albumin/Globulin Ratio 0.5 L, Triglycerides 51 Micro: Microbiology 12/12/20 23:57 Nasal Secretion SARS-CoV-2 Antigen (Rapid) - Final Radiography Diagnostic Testing: Radiology Impression Echocardiogram 12/17/20 07:35 Interpretation Summary Left ventricular systolic function is normal. The estimated ejection fraction is 65 %. The left atrium is moderately enlarged. There is moderate to severe mitral annular calcification. Extension of the mitral annular calcification onto the base of the posterior mitral valve leaflet. The mitral valve chordae are thickened and/or calcified. Mild-Moderate (1-2+) eccentric mitral valve insufficiency. Moderate (2+) eccentric tricuspid valve insufficiency. Moderate focal aortic valve calcification. Trivial aortic valve insufficiency. Mild (1+) pulmonic valve insufficiency. Right ventricular systolic pressure estimated to be 48 mmHg. There is evidence of diastolic dysfunction. Ordering Physician: Jarret Castañeda Referring Physician: Ness Tello Performed By: Jolene Lino, RYANCS, RVT Physical Exam Const alert and oriented x3 General Appearance: cooperative Neck supple Resp normal respiratory effort Effort and Inspection: able to speak in complete sentences Cardio regular rate GI GI Narrative: abdomen is soft, generalized tenderness, unchanged from previous examinations Assessment & Plan Assessment/Plan (1) Stomach volvulus: PLAN: patient wants to talk hospice, will discuss with hospitalist
[2020-12-18] MEDS: Insulin Lispro 100 UNIT/ML INSULN.PEN SC ×2 (13:06→16:32)
[2020-12-18 13:16] LABS: Bedside Glucose 204 mg/dL (70-110)
--- NOTE | 2020-12-18 14:27 | NURSING ---
Read and reviewed SN documentation.
[2020-12-18] MEDS: HYDROmorphone 1 MG/ML Syringe IV ×2 (15:37→20:10)
[2020-12-18] MEDS: Fat Emulsions 20% 250 ML IV (16:04)
[2020-12-18 16:41] LABS: Bedside Glucose 156 mg/dL (70-110)
--- NOTE | 2020-12-18 16:45 | PCM.PN.HOSP ---
Subjective Subjective She has been struggling and being here in the hospital, she no longer wants to pursue surgical intervention for this hiatal hernia. I discussed with her at length the benefits of surgery versus the risks as well. In discussion with surgery, they gave it a 50-50 chance of having any significant morbidity or mortality. In fact I asked that if [facility] had a bed this evening if she would consent to go for surgical repair and she said no. I discussed with her at length if she understood that by not having surgical repair then she would need to go hospice and she would prefer to go hospice. Also discussed with her that if she did have surgical repair she could potentially return to her baseline function and she expressed understanding with that as well but still wants to proceed with hospice Objective Data Objective Data Vital Signs: Vital Signs Temp Pulse Resp BP Pulse Ox 98.5 F 90 16 147/63 H 92 12/18/20 16:26 12/18/20 16:26 12/18/20 16:26 12/18/20 16:26 12/18/20 16:26 Oxygen Flow Rate (L/min) 3 Oxygen Delivery Method Nasal Cannula Weight: 137 lb 2.04 oz Body Mass Index (BMI) 23.6 Intake & Output: Intake and Output for Last 24 Hours 12/17/20 12/18/20 12/19/20 03:59 03:59 03:59 Intake Total 3036.01 / 3041.01 3035.17 / 3040.17 3461.53 / 3461.53 Balance 3036.01 / 3041.01 3035.17 / 3040.17 3461.53 / 3461.53 Lab / Micro Data Result Diagrams: 12/18/20 07:22 12/18/20 07:22 Labs: Laboratory Results - last 24 hr 12/17/20 23:59: POC Glucose 197 H 12/18/20 05:37: POC Glucose 188 H 12/18/20 07:22: WBC 5.5, RBC 4.49, Hgb 13.0, Hct 39.5, MCV 88.0, MCH 29.0, MCHC 32.9, RDW Std Deviation 44.7 H, RDW Coeff of Sarah 13.8, Plt Count 206, MPV 9.3, Immature Gran % (Auto) 0.200, Neut % (Auto) 72.4 H, Lymph % (Auto) 13.5 L, Baxter % (Auto) 13.1 H, Eos % (Auto) 0.4, Baso % (Auto) 0.4, Absolute Neuts (auto) 4.0, Absolute Lymphs (auto) 0.74 L, Nucleated RBC % 0 12/18/20 07:22: PT 14.7, INR 1.2 12/18/20 07:22: Sodium 134 L, Potassium 3.2 L, Chloride 104, Carbon Dioxide 26.0, Anion Gap 4 L, BUN 9, Creatinine 0.52 L, Estim Creat Clear Calc 31.94, Est GFR (MDRD) Af Amer 144, Est GFR (MDRD) Non-Af 119, BUN/Creatinine Ratio 17.3, Glucose 213 H, Calcium 8.0 L, Phosphorus 1.8 L, Magnesium 2.1, Total Bilirubin 0.30, AST 15, ALT 13, Alkaline Phosphatase 79, Total Protein 5.7 L, Albumin 1.9 L, Globulin 3.8, Albumin/Globulin Ratio 0.5 L, Triglycerides 51 12/18/20 13:01: POC Glucose 204 H 12/18/20 16:31: POC Glucose 156 H Micro: Microbiology 12/12/20 23:57 Nasal Secretion SARS-CoV-2 Antigen (Rapid) - Final Physical Exam Const alert, oriented x3 and no apparent distress General Appearance: cooperative HEENT normocephalic and moist oral mucous membranes Eyes PERRL, EOMs intact bilaterally and conjunctivae normal Neck supple and no JVD Resp normal respiratory effort, no retractions, no use of accessory muscles and clear to auscultation bilaterally Auscultation: Negative for crackles, rales, rhonchi or wheezes Cardio regular rate, regular rhythm, S1 normal heart sound, S2 normal heart sound and no murmurs GI soft to palpation, non-tender and non-distended; Negative for hepatosplenomegaly Extremity no clubbing, cyanosis or edema Skin no rashes or lesions noted Neuro no focal motor deficits and no sensory deficits noted Psych Appearance: appropriate Mood & Affect: flat affect Assessment & Plan Assessment/Plan (1) Diverticulitis: (2) Diaphragmatic hernia: QUALIFIERS: Obstruction and gangrene presence: with obstruction but without gangrene Qualified Code(s): K44.0 - Diaphragmatic hernia with obstruction, without gangrene (3) Stomach volvulus: PLAN: 1. Large left diaphragmatic hernia with partial stomach volvulus, acute small bowel diverticulitis with history of chronic colonic diverticulosis with partial small bowel obstruction/ileus: Patient is being admitted MedSur on polisher numeral. IV fluid Ringer lactate. Patient seen by surgeon Dr. Duval. She is accepted in [facility] and will be transferred once bed is available. On IV Cipro and Flagyl. Stool for occult blood, WBC and enteric bacterial pathogen although she is not having any bowel movement currently. Lactic acid normal. Keep n.p.o. lab work for today ordered. 12/14: Discussed with the surgeon Dr. Duval and will try to get to the [facility] early. She does not have leukocytosis or fever or tachycardia. She still has abdominal pain and mild voluntary guarding. On IV antibiotics Cipro and Flagyl. 12/15: No bed opening [facility]. I called [facility] and put the request for transfer. Waiting for the call back. Continue present treatment n.p.o., IV antibiotics. Patient does not have leukocytosis. 12/16/2020: We will place a PICC line today and hopefully be able to start on TPN in the morning. Given how long she has been n.p.o. and given the likely prolonged postoperative course, will start her on nutrition 12/17/2020: She continues to be n.p.o., PICC line was placed yesterday we will start with artificial nutrition today. 12/18/2020: She is still n.p.o., will continue with PICC line and TPN. She has elected to proceed with hospice, hospice will contact the daughter and will likely plan for transition to the hospice inpatient unit tomorrow morning 2. Coronary artery disease status post stents and hypertension/new onset A. fib: Currently patient not having any chest pain or shortness of breath. Twelve-lead EKG ordered. Hold her cardiac medications as she is n.p.o. status. BP elevated on IV hydralazine as needed for systolic BP more than 160 mmHg. 12/15: Blood pressure was hives controlled on IV hydralazine. 12/16/2020: She went into new onset A. fib with RVR. This is likely secondary to left atrial irritation from her diaphragmatic hernia. Started on Cardizem drip and will monitor. Will obtain serial troponins, she did have on EKG lateral ST depressions likely consistent with demand ischemia. Still awaiting transfer to [facility] but they were updated with this change in condition 12/17/2020: Echo with moderate pulmonary hypertension with RVSP of 40 mmHg, there is no wall motion abnormality therefore the elevated troponin is likely demand ischemia secondary to her elevated heart rate with her A. fib yesterday her A. fib is likely related to her hiatal hernia. Plan is for operative repair at the [facility] therefore hold off of any anticoagulation at this time 3. 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: DVT: Lovenox Charges/Coding Visit Charges Inpatient E&M: 73835 Subs Hosp L2
[2020-12-19] VITALS (12 sets, daily range): BP systolic 115–170; BP diastolic 62–77; PULSE 71–84; RESP 8–19; TEMP 36.9–37.2; O2SAT 94–98
[2020-12-19] MEDS: Insulin Lispro 100 UNIT/ML INSULN.PEN SC ×2 (00:09→05:49)
[2020-12-19 00:15] LABS: Bedside Glucose 186 mg/dL (70-110)
[2020-12-19] MEDS: Ondansetron 4 MG/2 ML Vial IV (03:33)
[2020-12-19] MEDS: HYDROmorphone 1 MG/ML Syringe IV ×2 (03:33→09:28)
[2020-12-19] MEDS: 0.9% Saline Lock 10 ML Syringe IV (03:34)
[2020-12-19] MEDS: metroNIDAZOLE 500 MG/100 ML BAG 100 MG IV (05:52)
[2020-12-19 05:59] LABS: Absolute Lymphocyte Count 0.71 X10^3/uL (0.83-4.51); Absolute Neutrophil Count 4.3 X10^3/uL (2.0-7.7); Basophil# 0.03 X10^3/uL; Basophil% 0.5 % (0-1); Eosinophil# 0.06 X10^3/uL; Hematocrit 39.3 % (37-47); Hemoglobin 12.5 g/dL (12.0-15.0); Lymphocyte # 0.71 X10^3/ul (0.83-4.51); Lymphocyte % 12.2 % (19-41); Mean Corp Hgb Conc 31.8 g/dL (32-36); Mean Corpuscular Hgb 28.1 pg (27.0-32.0); Mean Corpuscular Volume 88.3 fL (81-99); Mean Platelet Vol. 9.5 fl (6.2-12.0); Monocyte# 0.67 X10^3/uL; Monocyte% 11.5 % (0-10); NRBC Flagged by Analyzer 0 % (0-5); Neutrophil # 4.28 X10^3/uL (2.7-7.7); Neutrophil % 73.8 % (47-70); Platelet Count 230 K/mm3 (150-450); RBC Distribution Width CV 13.4 % (11.6-14.6); RBC Distribution Width SD 43.8 fl (35.1-43.9); Red Blood Count 4.45 M/mm3 (4.2-5.4); White Blood Count 5.8 K/mm3 (4.4-11.0)
[2020-12-19] MEDS: Menthol/Lanolin/Calamine/Znox 113 GM Tube 1 APPLIC TOPICAL (06:10)
[2020-12-19 06:46] LABS: ALB/GLOB Ratio 0.5 RATIO (0.9-2.4); AST(SGOT) 11 U/L (15-37); Alanine Aminotransfer ALT/SGPT 11 U/L (13-56); Albumin, Serum 1.8 g/dL (3.2-5.0); Alkaline Phosphatase 75 U/L (45-117); Anion Gap 4 (5-15); BUN 14 mg/dL (7-18); Calcium,Total 7.8 mg/dL (8.5-10.1); Chloride 102 mmol/L (98-107); Creatinine, Serum 0.45 mg/dL (0.55-1.02); EST Glomerular Filtration Rate 140 mL/min (>60); Est Glom Filt Rate - Afr Amer 169 mL/min (>60); Estimated Creatinine Clearance 31.94 ml/min; Globulin 3.4 g/dL (2.2-4.2); Glucose 190 mg/dL (74-106); Magnesium 2.4 mg/dL (1.6-2.6); Phosphorus 2.6 mg/dL (2.5-4.9); Potassium 3.4 mmol/L (3.5-5.1); Protein, Total 5.2 g/dL (6.4-8.2); Sodium Level 135 mmol/L (136-145)
[2020-12-19 07:05] LABS: Bedside Glucose 183 mg/dL (70-110)
[2020-12-19] MEDS: proCHLORPERazine 10 MG/2 ML Vial 5 MG IV (09:29)
[2020-12-19] MEDS: Ciprofloxacin 200 MG/100 ML BAG 100 MG IV (09:42)
--- NOTE | 2020-12-19 10:39 | DCINST_ITS ---
Discharge Instructions Diet Discharge Diet: No restrictions Activity Discharge Activity: Return to Normal Activity Follow Up Care Test Results: Test results from this visit will be discussed in further detail at your follow-up appointment, if applicable. Discharge Plan Admission Admit Date/Time: 12/13/20 07:53 Attending Provider: Jarret Castañeda Primary Care Provider: Ness Tello Consulting Providers: Rosalind Duval ; Sandy Lazo ; Nicholas Palacio ; Cynthia Loyola ; Rosy Ragland ; Alem Santiago ; Leah Mora [employer]ENT Discharge Orders/Prescriptions Prescriptions: Continued metoprolol succinate 50 MG tablet extended release 24 hr 50 mg PO BID RF: 0 amlodipine 10 mg tablet 10 mg PO DAILY RF: 0 aspirin 81 mg Tablet,Chewable 81 mg PO DAILY RF: 0 Referrals / Follow Up: Ness Tello PA [Primary Care Provider] - Disposition Disposition (needs filled in before D/C Order can be placed): Hospice in Medical Facility
--- NOTE | 2020-12-19 12:11 | CM.ED ---
SW Note SW received call from [facility] stating hospice is inquiring about plan. SHREYA spoke to Shari from Hospice. She said that they have all the referral paperwork for patient to be admitted to [facility]. SHREYA spoke to Jacobo, director asset. She said that patient would leave for [facility] at 1:00pm. SHREYA also requested paperwork for patient's discharge be faxed to the IP unit fax at [phone]. SHREYA called Jacobo and confirmed discharge time scheduled and requested staff fax over discharge paperwork to Hospice fax number. Jacobo will ensure that paperwork is faxed to Hospice. No further SW needs at this time. Plan: [facility]
--- NOTE | 2020-12-19 13:09 | PCM.DC.SUM ---
Providers Date of Admission: 12/13/20 Primary Care Physician: URMILA Barrett Consultations 12/13/20 08:42 Consult: General Surgery Routine Consulting Provider: Rosalind Duval Reason for Consult: bowel obstruction, diaphragamtic hernia EMERGENT Consult: No MD Notified: Yes Date Notified: 12/12/20 Time Notified: 20:44 Method of Notification: Verbal 12/18/20 16:29 Consult: Hospice / Palliative Care Routine Consulting Provider: [facility] Reason for Consult: stomach volvus EMERGENT Consult: No Notified: Yes Date Notified: 12/18/20 Time Notified: 16:29 Method of Notification: Verbal Reason For Visit: SM BOWEL DIVERTICULITIS,PARAESOPHAGEAL HIATAL ANGELO Diagnosis Discharge Diagnosis (1) Stomach volvulus: Status: Acute Code(s): K31.89 - Other diseases of stomach and duodenum Medications at Discharge Home Medications amlodipine 10 mg PO DAILY 12/12/20 metoprolol succinate 50 mg PO BID 12/12/20 aspirin 81 mg PO DAILY 12/13/20 Hospital Course Operations None Procedures 2-D Echocardiogram Summary of Care Provided Minutes Spent on Discharge: 50 Hospital Course: Per HPI: CHRIS JUNG, is a 85 F with multiple comorbidities including coronary artery disease status post stents, lacunar infarcts in the past in 2016, hypertension was brought to ER by EMS for abdominal pain. Patient complain of severe abdominal pain for last 2 days along with burping, nausea but no vomiting. She was given IV fluid, Zofran by EMS. She is passing incomplete flatus but no stool. Abdominal pain is 10/10 diffuse from the lower half of chest to pelvis but predominantly left upper quadrant. Patient was seen in [facility] on 11/30 for right-sided abdominal pain and at that time CT abdomen showed intrathoracic stomach without obstruction, no bowel obstruction or dilatation or diverticulosis throughout the colon most significant in sigmoid colon. No focal acute inflammation. Appendix absence. Evidence of prior right hemicolectomy and anastomosis. In ER CT abdomen was done which showed large left diaphragmatic hernia with possible partial volvulus of the stomach. Acute small bowel diverticulitis with single large diverticulum in distal jejunum with surrounding inflammation. No free perforation or extraluminal gas. Diffuse colonic diverticulosis. and patient was evaluated by surgeon and recommended transfer to [facility] and patient is accepted there. There is still no bed average in [facility] therefore she is admitted in the interim. Patient does not have leukocytosis but neutrophil predominant differential. 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 Hospital Course: 1. 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 IV fluid Ringer lactate. Patient seen by surgeon Dr. Duval. She is accepted in [facility] and will be transferred once bed is available. On IV Cipro and Flagyl. Stool for occult blood, WBC and enteric bacterial pathogen although she is not having any bowel movement currently. Lactic acid normal. Keep n.p.o. lab work for today ordered. 12/14: Discussed with the surgeon Dr. Duval and will try to get to the [facility] early. She does not have leukocytosis or fever or tachycardia. She still has abdominal pain and mild voluntary guarding. On IV antibiotics Cipro and Flagyl. 12/15: No bed opening [facility]. I called [facility] and put the request for transfer. Waiting for the call back. Continue present treatment n.p.o., IV antibiotics. Patient does not have leukocytosis. 12/16/2020: We will place a PICC line today and hopefully be able to start on TPN in the morning. Given how long she has been n.p.o. and given the likely prolonged postoperative course, will start her on nutrition 12/17/2020: She continues to be n.p.o., PICC line was placed yesterday we will start with artificial nutrition today. 12/18/2020: She is still n.p.o., will continue with PICC line and TPN. She has elected to proceed with hospice, hospice will contact the daughter and will likely plan for transition to the hospice inpatient unit tomorrow morning 12/19/2020: As per yesterday's note she is refusing surgical intervention. She does understand the risks of surgery and no surgery at this point. I discussed this issue with the daughter as well this morning and she states that she will do what ever her mother wants to do. Therefore we will plan to discharge to the hospice IPU with potential transition to home hospice depending on how the patient does and how comfortable the daughter is. 2. Coronary artery disease status post stents and hypertension/new onset A. fib: Currently patient not having any chest pain or shortness of breath. Twelve-lead EKG ordered. Hold her cardiac medications as she is n.p.o. status. BP elevated on IV hydralazine as needed for systolic BP more than 160 mmHg. 12/15: Blood pressure was hives controlled on IV hydralazine. 12/16/2020: She went into new onset A. fib with RVR. This is likely secondary to left atrial irritation from her diaphragmatic hernia. Started on Cardizem drip and will monitor. Will obtain serial troponins, she did have on EKG lateral ST depressions likely consistent with demand ischemia. Still awaiting transfer to [facility] but they were updated with this change in condition 12/17/2020: Echo with moderate pulmonary hypertension with RVSP of 40 mmHg, there is no wall motion abnormality therefore the elevated troponin is likely demand ischemia secondary to her elevated heart rate with her A. fib yesterday her A. fib is likely related to her hiatal hernia. Plan is for operative repair at the [facility] therefore hold off of any anticoagulation at this time 3. 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: Physical Exam Const alert, oriented x3 and no apparent distress General Appearance: cooperative HEENT normocephalic and moist oral mucous membranes Eyes PERRL, EOMs intact bilaterally and conjunctivae normal Neck supple and no JVD Resp normal respiratory effort, no retractions, no use of accessory muscles and clear to auscultation bilaterally Auscultation: Negative for crackles, rales, rhonchi or wheezes Cardio regular rate, regular rhythm, S1 normal heart sound, S2 normal heart sound and no murmurs GI soft to palpation, non-tender and non-distended; Negative for hepatosplenomegaly Extremity no clubbing, cyanosis or edema Skin no rashes or lesions noted Neuro no focal motor deficits and no sensory deficits noted Psych Appearance: appropriate Mood & Affect: flat affect Weight / BMI Weight Weight: 144 lb 6.444 oz Body Mass Index (BMI) 23.6 ABG / Lab / Microbiology Data Result Diagrams: 12/19/20 05:34 12/19/20 05:34 Laboratory: Laboratory Results - last 24 hr 12/18/20 13:01: POC Glucose 204 H 12/18/20 16:31: POC Glucose 156 H 12/19/20 00:06: POC Glucose 186 H 12/19/20 05:34: WBC 5.8, RBC 4.45, Hgb 12.5, Hct 39.3, MCV 88.3, MCH 28.1, MCHC 31.8 L, RDW Std Deviation 43.8, RDW Coeff of Sarah 13.4, Plt Count 230, MPV 9.5, Immature Gran % (Auto) 1.000 H, Neut % (Auto) 73.8 H, Lymph % (Auto) 12.2 L, Kerr % (Auto) 11.5 H, Eos % (Auto) 1.0, Baso % (Auto) 0.5, Absolute Neuts (auto) 4.3, Absolute Lymphs (auto) 0.71 L, Nucleated RBC % 0 12/19/20 05:34: Sodium 135 L, Potassium 3.4 L, Chloride 102, Carbon Dioxide 29.0, Anion Gap 4 L, BUN 14, Creatinine 0.45 L, Estim Creat Clear Calc 31.94, Est GFR (MDRD) Af Amer 169, Est GFR (MDRD) Non-Af 140, BUN/Creatinine Ratio 31.0 H, Glucose 190 H, Calcium 7.8 L, Phosphorus 2.6, Magnesium 2.4, Total Bilirubin 0.30, AST 11 L, ALT 11 L, Alkaline Phosphatase 75, Total Protein 5.2 L, Albumin 1.8 L, Globulin 3.4, Albumin/Globulin Ratio 0.5 L 12/19/20 05:46: POC Glucose 183 H Microbiology: Microbiology 12/12/20 23:57 Nasal Secretion SARS-CoV-2 Antigen (Rapid) - Final D/C Instructions Discharge Diet: No restrictions Meaningful Use Info Meaningful Use Diagnoses (Choose all that apply): None applicable Discharge Plan Admission Admit Date/Time: 12/13/20 07:53 Attending Provider: Jarret Castañeda Primary Care Provider: Ness Tello Consulting Providers: Rosalind Duval ; Sandy Lazo ; Nicholas Palacio ; Cynthia Loyola ; Rosy Ragland ; Alem Santiago ; Leha Mora MANAGER OF [employer] Discharge Orders/Prescriptions Prescriptions: Continued metoprolol succinate 50 MG tablet extended release 24 hr 50 mg PO BID RF: 0 amlodipine 10 mg tablet 10 mg PO DAILY RF: 0 aspirin 81 mg Tablet,Chewable 81 mg PO DAILY RF: 0 Referrals / Follow Up: Ness Tello PA [Primary Care Provider] - Disposition Disposition (needs filled in before D/C Order can be placed): Hospice in Medical Facility Charges/Coding Visit Charges Inpatient E&M: 93436 Disch Hosp
--- NOTE | 2020-12-22 22:25 | NURSING ---
[facility] CALLED INQUIRING ABOUT PATIENT. I INFORMED THE TRANSFER CENTER THAT PATIENT HAD BEEN SENT TO HOSPICE.
== END 2020-12-19 11:45 | disposition hospice, inpatient (51) | DRG 392 ==
LOC: ED 20:08 → MS3 12-13 07:55 → PCU 12-16 11:49
PROVIDERS: Admitting Provider Internal Medicine; Emergency Provider Emergency Medicine; Visit Provider Family Medicine
DX: K44.0 Diaphragmatic hernia with obstruction, without gangrene (principal); K57.12 Diverticulitis of small intestine without perforation or abscess without bleeding; I24.8 Other forms of acute ischemic heart disease; K56.7 Ileus, unspecified; K57.30 Diverticulosis of large intestine without perforation or abscess without bleeding; K31.89 Other diseases of stomach and duodenum; I25.10 Atherosclerotic heart disease of native coronary artery without angina pectoris; I10 Essential (primary) hypertension; I48.91 Unspecified atrial fibrillation; I27.20 Pulmonary hypertension, unspecified; G93.0 Cerebral cysts; F03.90 Unspecified dementia, unspecified severity, without behavioral disturbance, psychotic disturbance, mood disturbance, and anxiety; Z90.89 Acquired absence of other organs; Z90.49 Acquired absence of other specified parts of digestive tract; Z95.5 Presence of coronary angioplasty implant and graft; Z79.82 Long term (current) use of aspirin; Z79.899 Other long term (current) drug therapy; Z86.73 Personal history of transient ischemic attack (TIA), and cerebral infarction without residual deficits
CPT/HCPCS: 36415; 36569; 74177; 80048; 80053; 81001; 82247; 82248; 82962; 83605; 83735; 84100; 84478; 84484; 85025; 85610; 87426; 93005; 93306; 97162; 97166; 97530; 97535; 97802; 97803; 99251; 99285; J7030; J7040; J7050; J7120; Q9967; A4216; G0463; J0744; J2405; J7799